=== PATIENT | female | born 1935 | race Caucasian/White ===

== ENCOUNTER 2017-02-20 12:03 | Inpatient (IN) | payer MEDICARE, OTHER ==
[~2017-02-20] VITALS: Ht 157.5 cm; Wt 60.0 kg
[~2017-02-20 12:03] MED LIST: AMLO-145 PO; ATOR40TA21 PO; BENA40TA54 PO; CALC-678 PO; DOCU-144 PO; FAMO-18 PO; GLIM2TAB47 PO; HYDR12.544 PO; METO-448 PO; NEBI5TAB9 PO; PARO-37 PO; WARF3TAB PO
[2017-02-20 13:42] VITALS: BP 192/74; RESP 18
[2017-02-20 14:39] VITALS: PULSE 69
[2017-02-20] MEDS: SOD CHLORIDE 0.9% 1,000 ML IV SCH (15:23)
[2017-02-20] MEDS ORDERED: ONDANSETRON 4 MG INJ IV PRN (15:30)
[2017-02-20] MEDS ORDERED: NACL 0.9% 3 ML SYG IV SCH (15:30)
[2017-02-20] MEDS ORDERED: BISACODYL 10 MG SUPP PR PRN (15:30)
[2017-02-20] MEDS ORDERED: ACETAMINOPHEN 650 MG SUPP PR PRN (15:30)
[2017-02-20] MEDS ORDERED: DOCUSATE SODIUM 100 MG CAP PO PRN (15:30)
[2017-02-20] MEDS ORDERED: MAGNESIUM HYDROXIDE 30ML CUP PO PRN (15:30)
[2017-02-20 15:35] VITALS: BP 164/78; RESP 18
[2017-02-20 16:00] VITALS: PULSE 65
[2017-02-20] MEDS ORDERED: GLUCAGON 1 MG INJ IM PRN (16:00)
[2017-02-20] MEDS ORDERED: GLUCOSE GEL 15 GRAM TUBE BUCCAL PRN (16:00)
[2017-02-20] MEDS ORDERED: GLUCOSE GEL 15 GRAM TUBE PO PRN ×2 (16:00)
[2017-02-20] MEDS ORDERED: DEXTROSE 50% 50 ML SYRINGE IV PRN ×2 (16:00)
[2017-02-20 16:21] LABS: ADD SCAN DIFF NO
[2017-02-20 16:23] LABS: BASOPHILS % 0.2 % (0.0-2.0); EOSINOPHILS # 0.1 10^3/ul (0.0-0.5); EOSINOPHILS % 0.5 % (0.0-7.0); HEMOGLOBIN 14.3 g/dl (12.0-16.0); LYMPHOCYTES # 2.2 10^3/ul (0.8-2.9); LYMPHOCYTES % 20.3 % (15.0-51.0); MEAN CORPUSCULAR HEMOGLOBIN 28.8 pg (29.0-33.0); MEAN CORPUSCULAR HGB CONC 33.3 g/dl (32.0-37.0); MEAN CORPUSCULAR VOLUME 86.5 fl (82.0-101.0); MONOCYTE # 1.2 10^3/ul (0.3-0.9); MONOCYTES % 11.1 % (0.0-11.0); NEUTROPHIL # 7.4 10^3/ul (1.6-7.5); NEUTROPHILS % 67.5 % (39.0-77.0); PLATELET COUNT 232 10^3/UL (140-415); RED BLOOD COUNT 4.97 10^6/ul (4.20-5.40); RED CELL DISTRIBUTION WIDTH 14.4 % (11.5-14.5)
[2017-02-20 16:38] LABS: ALBUMIN 2.9 g/dl (3.3-4.9); CHLORIDE 93 mmol/L (97-110); POTASSIUM 3.9 mmol/L (3.5-5.1); SODIUM 133 mmol/L (135-144)
[2017-02-20 16:40] LABS: BILIRUBIN,INDIRECT 0.7 mg/dl (0-1.1); BILIRUBIN,TOTAL 0.7 mg/dl (0.2-1.3); CREATININE 0.94 mg/dl (0.44-1.00)
[2017-02-20 16:41] LABS: ALANINE AMINOTRANSFERASE 23 IU/L (13-69); ALBUMIN/GLOBULIN RATIO 0.82; ALKALINE PHOSPHATASE 79 IU/L (42-121); ANION GAP 15 (8-16); ASPARTATE AMINO TRANSFERASE 22 IU/L (15-46); BLOOD UREA NITROGEN 19 mg/dl (7-20); CARBON DIOXIDE 29 mmol/L (21-31); CREATINE KINASE 31 IU/L (23-200); GLUCOSE 151 mg/dl (70-220); TOTAL PROTEIN 6.4 g/dl (6.1-8.1)
[2017-02-20 16:49] LABS: CK-MB 0.42 ng/ml (0.0-2.4)
[2017-02-20 16:56] LABS: TROPONIN-I < 0.012 ng/ml (0.00-0.12)
[2017-02-20 17:50] LABS: ADD UMIC YES; URINE BILIRUBIN (Dip) NEGATIVE (NEGATIVE); URINE BLOOD (Dip) 1+ (NEGATIVE); URINE COLOR YELLOW (YELLOW); URINE GLUCOSE (Dip) NEGATIVE (NEGATIVE); URINE KETONES (Dip) NEGATIVE (NEGATIVE); URINE LEUKOCYTE ESTERASE (Dip) NEGATIVE (NEGATIVE); URINE NITRITE (Dip) NEGATIVE (NEGATIVE); URINE TOTAL PROTEIN (Dip) 4+ (NEGATIVE); URINE UROBILINOGEN (Dip) 1.0 E.U./dL (0.1-1.0)
[2017-02-20] MEDS: HYDROCODONE/APAP (5/325) TAB PO PRN (17:54)
[2017-02-20] MEDS: CALCIUM CARBONATE 1.25 GM TAB PO SCH (17:54)
[2017-02-20 18:00] LABS: BACTERIA,URINE MODERATE; MUCUS,URINE FEW
[2017-02-20] MEDS: INSULIN ASPART [NOVOLOG] 3 ML PEN SC SCH ×2 (18:05→21:00)
--- NOTE | 2017-02-20 18:55 | RADRPT ---
PROCEDURE: CT Brain without contrast. CLINICAL INDICATION: Headaches and loss of consciousness TECHNIQUE: A CT of the brain was performed on a [employer] 64-slice CT scanner utilizing axial imaging from the skull base through the vertex without IV contrast. Multiplanar reformatted images were made. Images were reviewed on a PACS workstation. The CTDIvol is 43.68 mGy and the DLP is 720 .23 mGycm. One of the following 3 dose reduction techniques were used: Automated exposure control; adjustment of the mA and/or kV according to patient size; or use of iterative reconstruction technique. COMPARISON: MR brain 08/10/[address] brain 08/09/2012 FINDINGS: There is no intracranial hemorrhage, mass effect, or midline shift. No extra-axial fluid collection is seen. The ventricles and sulci are age appropriate. Mild to moderate diffuse volume loss is pre sent. Confluent decreased attenuation is present in the bilateral subcortical white matter, bilater al centrum semiovale, bilateral periventricular white matter, bilateral insula, right thalamus, all compatible with moderate chronic microvascular ischemic disease and chronic right thalamic and coron a radiata lacunar infarct. Moderate vascular calcifications are present of the intracranial interna l carotid arteries and the vertebral arteries.. The visualized scalp and calvarium are normal. The bilateral orbits demonstrate prior lens replacem ent with senescent calcifications present. The bilateral paranasal sinuses demonstrate mild mucosal thickening in the bilateral ethmoid sinuses. No acute air fluid levels are present. The bilateral mastoid air cells and middle ear cavities are clear. IMPRESSION: 1. No evidence of acute intracranial hemorrhage, infarcts, or acute intracranial pathology. 2. Moderate chronic microvascular ischemic disease and mild to moderate diffuse volume loss 3. Chronic right thalamic lacunar and plascencia radiata infarct 4. Moderate atherosclerotic vascular disease. RPTAT: HDC .Nata Quiroga MD, MD Date Time Electronically viewed and signed by .Nata Quiroga MD, MD on 02/20/2017 18:55 .C/
--- NOTE | 2017-02-20 19:07 | RADRPT ---
PROCEDURE: CT Cervical Spine. CLINICAL INDICATION: Neck pain TECHNIQUE: A CT of the cervical spine was performed on a Joe 64-slice CT scanner utilizing hi gh-resolution axial imaging from the skull base through the cervical thoracic junction. Sagittal, c oronal, and multiplanar reformatted images were made. CTDI 22.11 mGy and DLP 404.59 mGy-cm. One of the following 3 dose reduction techniques were used during this CT examination: automated exp osure control; adjustment of the mA and /or kV according to patient size; or use of iterative recons truciton technique COMPARISON: 08/14/2012 CT cervical spine FINDINGS: There is a normal lordosis of the cervical spine. Acute fractures or traumatic subluxations are note d. Preservation of vertebral body heights are noted. Anterior degenerative spondylosis is present of the C3 through T1 level. Degenerative endplate changes and disk changes are noted at the C3-4 an d C4-5 levels with severe disk space height loss present. The visualized bilateral lung apices and imaged paravertebral soft tissues are normal with the exception of extensive vascular disease noted in the bilateral internal carotid arteries and distal common carotid artery. In addition a peripher ally calcified nodule in the right posterior thyroid lobe measuring 1.2 cm is present. Recommend th yroid ultrasound and correlation with thyroid function tests. The posterior elements are intact and well aligned. The specific axial levels are as follows: Occiput to C2: The visualized posterior fossa bilateral mastoid air cells and skull base are normal . No evidence for significant stenosis is present. Atlantoaxial degenerative changes are present. C2-3: Mild osteophytic bar and bulge is present with bilateral uncovertebral osteophytes. The cent ral canal, subarticular recess and neural foramen are patent. C3-4: Severe degenerative endplate and disk changes with disk space height loss is noted. Mild bro ad-based bulge and osteophyte is present with bilateral uncovertebral and facet osteoarthropathy. A P canal dimension is 9.3 mm. This results in a mild central canal stenosis, without subarticular re cess or left neural foraminal stenosis. Moderate to severe right neural foraminal stenosis is prese nt. C4-5: Severe disk space height loss and degenerative endplate changes are present. An osteophytic bar and bulge is present with left greater than right uncovertebral osteophyte and facet arthropathy . AP canal dimension 7.5 mm. This results in a moderate central canal stenosis, left greater than right subarticular recess stenosis and moderate left and mild right neural foraminal stenosis. C5-6: Mild spondylosis is present with preservation of disk space height. A mild osteophytic bar a nd bulge is present. AP canal dimension is 9.2 mm. This results in a mild central canal stenosis w ithout subarticular recess stenosis. Mild bilateral neural foraminal stenosis is present. C6-7: Mild osteophytic bar and bulge is present. Bilateral uncovertebral osteophytes and facet art hropathy is present. The central canal, bilateral subarticular recesses are patent. Moderate bilat eral neural foraminal stenosis is present. C7-T1: The intervertebral discs is normal. The central canal, subarticular recess and neural collette en are patent. IMPRESSION: 1. No acute fractures or traumatic subluxations. 2. Anterior degenerative spondylosis from C3-T1 with severe degenerative endplate and disk changes at C3-4 and C4-5 as noted. 3. Multilevel broad-based disk osteophyte complexes at the C2-3 through C6-7 levels with moderate c entral canal stenosis at C4-5 and mild at C3-4 and C5-6. 4. Multilevel neural foraminal stenosis at the C3-4 through C6-7 levels. 5. Multilevel facet and uncovertebral osteoarthropathy as noted. RPTAT: HDC .Nata Quiroga MD, MD Date Time Electronically viewed and signed by .Nata Quiroga MD, MD on 02/20/2017 19:07 .C/
--- NOTE | 2017-02-20 19:08 | HP ---
DATE OF ADMISSION: 02/20/2017 CHIEF COMPLAINT: Altered level of consciousness. HISTORY OF PRESENT ILLNESS: This is an 81-year-old female with reported past medical history of CVA 30 years ago, pulmonary embolism 7 years ago, hypertension, diabetes, osteoporosis, dyslipidemia, h istory of breast tumor status post removal on the left side, history of uterine cancer status post h ysterectomy, who came to [facility] due to reports of altered level of consciousne ss. The patient is a poor historian of her medical health and, as such, report was obtained from zahra rizvi's family members who do live with the patient. According to report, roughly on Monday, 2016, patient was noted to have experienced dizziness as well as headaches after she had gone to the bathroom. She also had associated trembling and shaking. She did have reported nausea and vomitin g, nonbilious, nonbloody, with no associated fevers. She denied any diarrhea. She subsequently was brought to [facility] for the aforementioned issues. At that time, she reportedly had a CT scan of her head that showed no evidence of acute CVA or hemorrhage or mass. Additionally, her labs drawn over there did show her to have a white count of 14.4. She did have some slight renal in sufficiency with creatinine of 1.16 and BUN of 18 respectively. At that time, she was diagnosed wit h urinary tract infection, although it was noted that her nitrite test and leukocyte esterase test w as negative at [facility]. She was treated for UTI nevertheless and was dischar ged home with pain medicine as well as antibiotics. At that time, she also had reported head and ne ck pain. Due to her worsening state noticed on 02/20/2017 and reported altered level of consciousne ss, she was brought back to [facility] for evaluation, but transferred to [facility] secondary to insurance issue. On further examination, patient was still noted with wo rsening neck pain even slight to the touch. No motor deficit was seen and patient was slightly aler t, although she did have some kind of garbled speech. No fevers noted. Blood pressure noted to be slightly elevated. The patient is alert to person and place. She denies any chest pain at this [facility]. It was reported that patient also had CT scan of her abdomen, although the report is not in augusto t. Per ER, they did state that she did have findings consistent with diverticulosis without diverti culitis. At present, the patient denies any abdominal pain. She does report having some minimal ch est discomfort, more midsternal, nonradiating. Only minimal shortness of breath associated with it. We will evaluate her for the aforementioned issues. MEDICAL AND SURGICAL History: 1. Cerebrovascular accident reported 30 years ago. 2. Pulmonary embolism 7 years ago, previously on Coumadin. 3. Hypertension. 4. Diabetes. 5. Dyslipidemia. 6. Osteoporosis. 7. History of breast tumor on the left status post removal. 8. History of uterine cancer status post hysterectomy. ALLERGIES: IT IS REPORTED SHE IS ALLERGIC TO CODEINE AND HYDROCODONE AND FENTANYL, BUT WHEN ASKED W HAT REACTIONS WERE, IT WAS ONLY REPORTED THAT SHE HAD NAUSEA AND VOMITING WITH IT AND LIKELY NOT ALL ERGIES, BUT MORE SIDE EFFECT. FAMILY HISTORY: Noncontributory. SOCIAL HISTORY: It was reported the patient is a previous smoker, but no current smoking or alcohol consumption or illicit drug use. PHYSICAL EXAMINATION: VITAL SIGNS: Temperature 97.8, pulse 70, respiratory rate is 18, blood pressure is 192/74, pulse ox imetry 94% on room air. GENERAL: This is an 81-year-old female in mild distress secondary to neck pain, slightly lethargic. EYES: Pupils equal, round, and reactive to light. Anicteric sclerae. NECK: Supple. It is slightly tender on any ambulation. PULMONARY: Clear to auscultation bilaterally. No wheezing or rhonchi. ABDOMEN: Soft, nontender, nondistended. CARDIAC: S1, S2 auscultated. Regular rate. EXTREMITIES: No pitting edema bilateral lower extremities. SKIN: Warm, dry, and intact. NEUROLOGIC: The patient is alert to person and place. It is questionable whether she is coherent t o situation. LABORATORY DATA: Pending at present. IMAGING: [facility] on 02/17/2015 did show her to have CT scan of the brain with no acut e hemorrhage and atrophy and old lacunar infarcts were seen. IMPRESSION AND PLAN: 1. Altered level of consciousness. Etiology unclear at this time. We will follow up further imagi ng of the head. Question whether new event may have occurred considering the patient's mental statu s has reportedly declined from baseline today. Will get neurologist pending clinical course. 2. Neck pain. No report of trauma were done and additionally patient is afebrile. Blood work is p ending, considering possible leukocytosis. Will check imaging of the neck. Consider lumbar spine t ap should patient's condition worsen. 3. Reported chest pain. Follow up with serial troponins. Follow up electrocardiogram. 4. Essential hypertension. We will resume patient's antihypertensive medications and adjust as nee ded. 5. History of diabetes. Follow up on A1c. We will place patient on insulin regimen for now. 6. History of dyslipidemia. Follow up on fasting lipid panel. We will resume patient's statin med ication. 7. History of osteoporosis. Will provide analgesics. 8. History of pulmonary embolism. No active patient noted at this time. We will place patient on prophylaxis for deep vein thromboses. 9. History of uterine cancer status post hysterectomy. No active issue noted at this time. Will m onitor for now. 10. History of cerebrovascular accident. Follow up on imaging of the brain. Continue aspiration p recautions. Will get ST evaluation as well as PT and OT. ADMISSION PROCESS TIME: 40 minutes. Discussed plan of care with Dr. Wolff. Dictated By: SCAR BOSE PROFESSOR OF FOOD BIOCHEMISTRY for LILIYA WOLFF MD RR/NTS Conf#: [id number] DID#: [id number] CC: DES ONEIL MD;*EndCC*
--- NOTE | 2017-02-20 19:38 | RADRPT ---
Echocardiogram Report Patient Name: GALLITO COELLO Gender: Female Date: 1935 Study Date: 20-Feb-2017 Biology Internship: [facility] Location: 5538 Ref. Physician: SCAR BOSE Quality: Adequate Procedures: Transthoracic echocardiogram with complete 2D, M-Mode, and doppler examination. Indications: Chest Pain. 2D/M Mode Doppler Measurement Value Normal Ranges Measurement Value Normal Ranges LVIDd 2D 4.4 3.5 - 5.6 cm AV Peak Pola 1.1 m/sec LVIDs 2D 3.0 2.1 - 4.1 cm AV Peak PG 4.5 mmHg LVPWd 2D 1.1 0.6 - 1.1 cm LVOT Peak Pola 1.0 m/sec IVSd 2D 0.9 0.6 - 1.1 cm LVOT Peak PG 4.1 mmHg AoR Diam 2D 2.8 2.0 - 3.7 cm MV E Peak Pola 0.7 m/sec EDV 2D 85.5 cm3 MV A Peak Pola 1.1 m/sec ESV 2D 26.2 cm3 MV E/A 0.7 MV Decel Time 401 msec MV Decel Piatt 2 MV E/A 0.7 Findings Left Ventricle: Normal left ventricular systolic function. Normal left ventricular cavity size. Normal left ventricular wall thickness. Ejection fraction is visually estimated at 65 %. Tissue Doppler/Mitral Doppler indices are consistent with impaired relaxation (Stage I diastolic dysfunction). Right Ventricle: Normal right ventricular size. Normal right ventricular systolic function. Left Atrium: The left atrium is normal in size. Right Atrium: The right atrium is normal in size. RA Pressure=3. Mitral Valve: Mild mitral leaflet calcification. Mild mitral annular calcification. Trace mitral regurgitation. Aortic Valve: Aortic cusps appear mildly calcified. Trace aortic valve regurgitation. Tricuspid Valve: Tricuspid valve not well visualized. There is trace tricuspid regurgitation. Pulmonic Valve: There is trace pulmonic regurgitation. Pericardium: Normal pericardium with no significant pericardial effusion. Aorta: Normal aortic root. IVC: Normal size and normal respiratory collapse consistent with normal right atrial pressure. Conclusions 1.Normal left ventricular systolic function. Normal left ventricular cavity size. Normal left ventricular wall thickness. Ejection fraction is visually estimated at 65 %. Tissue Doppler/Mitral Doppler indices are consistent with impaired relaxation (Stage I diastolic dysfunction). 2.The left atrium is normal in size. 3.Mild mitral leaflet calcification. Mild mitral annular calcification. Trace mitral regurgitation. 4.Aortic cusps appear mildly calcified. Trace aortic valve regurgitation. 5.Tricuspid valve not well visualized. There is trace tricuspid regurgitation. Electronically Signed By: Vignesh Ward 20-Feb-2017 19:37:50 -0700 Patient Name: GALLITO COELLO Study Date: 20-Feb-2017 [id number]
[2017-02-20 19:54] VITALS: BP 197/85; RESP 19
[2017-02-20 20:02] VITALS: PULSE 63
[2017-02-20] MEDS: HYDROCHLOROTHIAZIDE 12.5 MG CAP PO SCH (21:02)
[2017-02-20] MEDS: ASPIRIN (EC) 81 MG TAB PO SCH (21:02)
[2017-02-20] MEDS: DOCUSATE SODIUM 100 MG CAP PO SCH (21:02)
[2017-02-20] MEDS: HEPARIN 5,000 UNIT/0.5 ML VIAL SC SCH (21:09)
[2017-02-20 21:40] LABS: CREATINE KINASE 28 IU/L (23-200)
[2017-02-20 21:50] LABS: CK-MB 0.44 ng/ml (0.0-2.4)
[2017-02-20 21:56] LABS: TROPONIN-I < 0.012 ng/ml (0.00-0.12)
--- NOTE | 2017-02-20 23:46 | CONS ---
DATE OF ADMISSION: 02/20/2017 DATE OF CONSULTATION: 02/20/2017 TYPE OF CONSULTATION: Emergent interventional cardiology. REASON FOR CONSULTATION: ST elevation on the EKG. CHIEF COMPLAINT: The patient was transferred from [place] for altered level of consciousness. HISTORY OF PRESENT ILLNESS: Thank you for this referral. History was from review of the chart, dis cussion with physician and staff. Unable to provide any history from the patient herself. She is a n extremely poor historian. This is a 81-year-old female with history of CVA many years ago, histor y of PE about 7 years ago, hypertension, diabetes who was admitted to [facility] for altere d level of consciousness. The patient was transferred to our facility for insurance reasons. On monitor was noted to have ST elevation on the EKG and we were kindly asked to evaluate the patient . The patient denies any chest pain or pressure to me. I am unable to obtain any other history. PAST MEDICAL HISTORY: CVA 13 years ago, history of PE, hypertension, diabetes, dyslipidemia, osteop orosis, breast tumor status post removal, history cancer status post hysterectomy. ALLERGIES: REPORTEDLY TO: 1. HYDROCODONE. 2. CODEINE. 3. FENTANYL. MEDICATIONS: As per medication reconciliation. Personally reviewed. SOCIAL HISTORY: The patient apparently was ex-smoker. Does not smoke anymore. FAMILY HISTORY: No reported coronary artery disease. REVIEW OF SYSTEMS: As above mentioned. PHYSICAL EXAMINATION: VITAL SIGNS: Temperature 98.5, heart rate of 65, blood pressure 164/78, respiration rate of 18, sat ting 97%. HEENT: Normocephalic, atraumatic. CARDIOVASCULAR: Regular rate and rhythm. PULMONARY: With no wheezes anteriorly. GASTROINTESTINAL: Soft, obese. EXTREMITIES: With trivial edema. NEUROLOGIC: Awake, oriented to person and place. PSYCHIATRIC: Appears to be calm. LABORATORY DATA: WBC of 11, hemoglobin 14.3, platelets of 232. Sodium 133, potassium 3.9, BUN of 1 9, creatinine 0.94, glucose 151. Troponin less than 0.012. Albumin is 2.9. Brain CT shows no evidence of acute intracranial hemorrhage. EKG was personally reviewed. It shows normal sinus rhythm with right bundle branch block and left a nterior fascicular block. Borderline ____ LVH. There is also first degree AV block. ASSESSMENT AND PLAN: 1. Abnormal electrocardiogram, but no evidence of acute myocardial infarction/ST elevation myocardi al infarction on the electrocardiogram. 2. Hypertension. 3. History of altered level of consciousness. 4. History of cerebrovascular accident. 5. Diabetes. 6. History of pulmonary embolism. 7. History of uterine cancer. 8. Breast cancer. 9. Dyslipidemia. RECOMMENDATIONS: Continue with the blood pressure control and diabetic control. Metoprolol will be changed to b.i.d. dose, though. I will order an echocardiogram as well. Monitor on the telemetry. Antiplatelet agents, aspirin will be initiated given history of stroke. Dictated By: ARI VASQUEZ MD AV/NTS Conf#: [id number] DID#: [id number] CC: DES ONEIL MD; SCAR BOSE NP;*[facility]*
[2017-02-21] VITALS (13 sets, daily range): BP systolic 115–176; BP diastolic 53–79; PULSE 60–85; RESP 15–18
[2017-02-21] MEDS: hydrALAzine 20 MG INJ IV PRN ×2 (01:17→21:40)
[2017-02-21] MEDS: ACCU-CHEK XX SCH (02:00)
[2017-02-21] MEDS ORDERED: PANTOPRAZOLE 40 MG INJ IV SCH (06:00)
[2017-02-21] MEDS: SOD CHLORIDE 0.9% 1,000 ML IV SCH ×2 (06:05→19:08)
[2017-02-21 06:07] LABS: ALBUMIN 2.8 g/dl (3.3-4.9); ALBUMIN/GLOBULIN RATIO 0.9; BILIRUBIN,INDIRECT 0.5 mg/dl (0-1.1); BILIRUBIN,TOTAL 0.5 mg/dl (0.2-1.3); CALCIUM 7.8 mg/dl (8.4-10.2); CHOL/HDL RATIO 3.7 RATIO; CREATININE 1.02 mg/dl (0.44-1.00); MAGNESIUM 1.7 mg/dl (1.7-2.5); PHOSPHORUS 4.7 mg/dl (2.5-4.9); TOTAL PROTEIN 5.9 g/dl (6.1-8.1)
[2017-02-21 06:24] LABS: T3 UPTAKE 44.6 % (23.5-40.5)
[2017-02-21 06:37] LABS: THYROID STIMULATING HORMONE 3.25 MIU/L (0.465-4.680)
[2017-02-21] MEDS: INSULIN ASPART [NOVOLOG] 3 ML PEN SC SCH ×4 (08:26→21:00)
[2017-02-21] MEDS: HEPARIN 5,000 UNIT/0.5 ML VIAL SC SCH ×2 (08:26→21:32)
[2017-02-21] MEDS: CALCIUM CARBONATE 1.25 GM TAB PO SCH (08:27)
[2017-02-21] MEDS: HYDROCHLOROTHIAZIDE 12.5 MG CAP PO SCH ×2 (08:27→21:27)
[2017-02-21] MEDS: DOCUSATE SODIUM 100 MG CAP PO SCH ×2 (08:27→21:25)
[2017-02-21] MEDS: ASPIRIN (EC) 81 MG TAB PO SCH (08:28)
[2017-02-21] MEDS: BENAZEPRIL 40 MG TAB PO SCH (08:28)
[2017-02-21] MEDS: GLIMEPIRIDE 2 MG TAB PO SCH (08:28)
[2017-02-21] MEDS: PAROXETINE 20 MG TAB PO SCH (08:28)
[2017-02-21] MEDS ORDERED: METOPROLOL 25 MG TAB PO SCH (09:00)
[2017-02-21] MEDS ORDERED: NEBIVOLOL 5 MG TAB PO SCH (09:00)
[2017-02-21] MEDS ORDERED: AMLODIPINE 5 MG TAB PO SCH (09:00)
[2017-02-21] MEDS ORDERED: ATORVASTATIN 40 MG TAB PO SCH (09:00)
--- NOTE | 2017-02-21 12:51 | RADRPT ---
PROCEDURE: XR Chest 1 View. CLINICAL INDICATION: Chest pain TECHNIQUE: AP view of the chest was obtained. COMPARISON: August 09, 2012 FINDINGS: The heart size is within normal limits. Calcified atherosclerosis is noted in the aorta. Chronic in terstitial prominence in both lungs is unchanged. No consolidations are identified. No pneumothorax is seen. Minimal subsegmental atelectasis is noted in the bilateral lower lobes. Osseous structures are intact. IMPRESSION: Calcified atherosclerosis in the aorta. Chronic interstitial prominence in both lungs. Subsegmental atelectasis in the bilateral lower lobes. RPTAT: AA .Juan Cobb MD, Date Time Electronically viewed and signed by .Juan Cobb MD, on 02/21/2017 12:51 .P/
--- NOTE | 2017-02-21 14:27 | PN ---
Date/Time of Note Date/Time of Note DATE: 02/21/17 TIME: 14:12 Assessment/Plan VTE Prophylaxis VTE Prophylaxis Intervention: heparin Lines/Catheters IV C[facility] Type ([facility] Peripheral IV Urinary Cath still in place: No Assessment/Plan Assessment/Plan 1. Altered mental status, likely dementia related, no acute illness so far 2. Generalized body ache, PT, decrease lipitor 3. Hypertension. controlled 4. Diabetes. on amaryl 5. Dyslipidemia. on statin 6. History of osteoporosis. Will provide analgesics. 7. History of pulmonary embolism. No active patient noted at this time. We will place patient on prophylaxis for deep vein thromboses. 8. History of uterine cancer status post hysterectomy. No active issue noted at this time. Will monitor for now. 9. h/o CVA, no acute changes on CT scan 10. DVT prophylaxis: heparin Subjective 24 Hr Interval Summary Free Text/Dictation genralized body ache and generalized weakness Exam/Review of Systems Vital Signs Vitals Vital Signs Date Time Temp Pulse Resp B/P Pulse Ox O2 Delivery O2 Flow Rate FiO2 02/21/17 13:20 67 18 115/53 97 Nasal Cannula 2.0 02/21/17 11:51 97.8 Intake and Output 02/20/17 02/20/17 02/21/17 15:00 23:00 07:00 Intake Total 1000 ml Output Total 500 ml Balance 500 ml Exam Constitutional: alert, other (demented) Head: atraumatic, normocephalic Eyes: EOMI, PERRL, nl conjunctiva, nl lids ENMT: nl external ears & nose, nl lips & teeth, nl nasal mucosa & septum Neck: non-tender, supple Respiratory: clear to auscultation, normal air movement, No congested cough, No crackles/rales, No diminished breath sounds, No intercostal retraction, No labored breathing, No other, No respirations, No tactile fremitus, No wheezing Cardiovascular: nl pulses, regular rate and rhythm, No S3, No S4, No bruits, No diastolic murmur, No edema, No gallop, No irregular rhythm, No jugular venous distention (JVD), No murmurs/extra sounds, No other, No rub, No systolic murmur Gastrointestinal: nl liver, spleen, non-tender, soft, No ascites, No bowel sounds, No distended, No firm, No hepatomegaly, No mass , No other, No rebound or guarding, No splenomegaly, No surgical scars, No tender Musculoskeletal: nl extremities to inspection Extremities: normal pulses, No calf tenderness, No clubbing, No cyanosis, No edema, No other, No palpable cord, No pitting pedal edema, No tenderness Neurological: SHEET WRITER II-XII intact, nl speech, other (generalily weak) Results Result Diagram: 02/20/17 1550 02/21/17 0510 Results 24 hrs Laboratory Tests Test 02/20/17 15:50 02/20/17 17:25 02/20/17 18:00 02/20/17 21:05 White Blood Count 11.0 H Red Blood Count 4.97 Hemoglobin 14.3 Hematocrit 43.0 Mean Corpuscular Volume 86.5 Mean Corpuscular Hemoglobin 28.8 L Mean Corpuscular Hemoglobin Concent 33.3 Red Cell Distribution Width 14.4 Platelet Count 232 Mean Platelet Volume 11.0 H Neutrophils % 67.5 Lymphocytes % 20.3 Monocytes % 11.1 H Eosinophils % 0.5 Basophils % 0.2 Nucleated Red Blood Cells % 0.0 Neutrophils # 7.4 Lymphocytes # 2.2 Monocytes # 1.2 H Eosinophils # 0.1 Basophils # 0.0 Nucleated Red Blood Cells # 0.0 Sodium Level 133 L Potassium Level 3.9 Chloride Level 93 L Carbon Dioxide Level 29 Anion Gap 15 Blood Urea Nitrogen 19 Creatinine 0.94 Glucose Level 151 Lactic Acid Level 1.0 Calcium Level 8.0 L Total Bilirubin 0.7 Direct Bilirubin 0.00 Indirect Bilirubin 0.7 Aspartate Amino Transf (AST/SGOT) 22 Alanine Aminotransferase (ALT/SGPT) 23 Alkaline Phosphatase 79 Creatine Kinase 31 Creatine Kinase Index 1.4 Creatinine Kinase MB (Mass) 0.42 Troponin I < 0.012 Total Protein 6.4 Albumin 2.9 L Globulin 3.50 H Albumin/Globulin Ratio 0.82 Lipase 62 Urine Color YELLOW Urine Clarity CLEAR Urine pH 6.5 Urine Specific [place] 1.020 Urine Ketones NEGATIVE Urine Nitrite NEGATIVE Urine Bilirubin NEGATIVE Urine Urobilinogen 1.0 E.U./dL Urine Leukocyte Esterase NEGATIVE Urine Microscopic RBC 5-10 Urine Microscopic WBC 2-5 Urine Epithelial Cells FEW Urine Bacteria MODERATE Urine Granular Casts FEW Urine Mucus FEW Urine Hemoglobin 1+ H Urine Glucose NEGATIVE Urine Total Protein 4+ H Bedside Glucose 118 125 Test 02/20/17 21:20 02/21/17 05:10 02/21/17 07:42 02/21/17 11:50 Creatine Kinase 28 Creatine Kinase Index 1.6 Creatinine Kinase MB (Mass) 0.44 Troponin I < 0.012 Sodium Level 130 L Potassium Level 4.0 Chloride Level 97 Carbon Dioxide Level 28 Anion Gap 9 # Blood Urea Nitrogen 23 H Creatinine 1.02 H Glucose Level 144 Hemoglobin A1c 7.5 H Calcium Level 7.8 L Phosphorus Level 4.7 Magnesium Level 1.7 Total Bilirubin 0.5 Direct Bilirubin 0.00 Indirect Bilirubin 0.5 Aspartate Amino Transf (AST/SGOT) 21 Alanine Aminotransferase (ALT/SGPT) 24 Alkaline Phosphatase 76 Total Protein 5.9 L Albumin 2.8 L Globulin 3.10 Albumin/Globulin Ratio 0.90 Triglycerides Level 126 Cholesterol Level 150 LDL Cholesterol, Calculated 85 HDL Cholesterol 40 Cholesterol/HDL Ratio 3.7 Thyroid Stimulating Hormone (TSH) 3.250 Free Thyroxine Index 3.66 Thyroxine (T4) 8.2 Triiodothyronine (T3) Uptake 44.6 H Bedside Glucose 161 113 Medications Medications Current Medications Amlodipine Besylate (Norvasc) 5 mg DAILY PO Last administered on 02/21/17 08: 28; Admin Dose 5 MG; Start 02/21/17 at 09:00 Atorvastatin Calcium (Lipitor) 40 mg DAILY PO Last administered on 02/21/17 08 :28; Admin Dose 40 MG; Start 02/21/17 at 09:00 Benazepril HCl (Lotensin) 40 mg DAILY PO Last administered on 02/21/17 08:28; Admin Dose 40 MG; Start 02/21/17 at 09:00 Docusate Sodium (Colace) 100 mg BID PO Last administered on 02/21/17 08:27; Admin Dose 100 MG; Start 02/20/17 at 21:00 Glimepiride (Amaryl) 2 mg DAILY@08 PO Last administered on 02/21/17 08:28; Admin Dose 2 MG; Start 02/21/17 at 08:00 Hydrochlorothiazide (Hydrochlorothiazide) 12.5 mg BID PO Last administered on 08:27; Admin Dose 12.5 MG; Start 02/20/17 at 21:00 Metoprolol Tartrate (Lopressor) 25 mg DAILY PO Last administered on 02/21/17 08:27; Admin Dose 25 MG; Start 02/21/17 at 09:00 Paroxetine HCl (Paxil) 20 mg DAILY PO Last administered on 02/21/17 08:28; Admin Dose 20 MG; Start 02/21/17 at 09:00 Calcium Carbonate 1.25 gm 1.25 gm DAILY PO Last administered on 02/21/17 08:27 ; Admin Dose 1.25 GM; Start 02/20/17 at 16:00 Sodium Chloride (NS) 1,000 ml @ 70 mls/hr [id number] IV Last administered on 02/21 06:05; Admin Dose 70 MLS/HR; Start 02/20/17 at 15:23 Ondansetron HCl (Zofran Inj) 4 mg Q6H PRN IV NAUSEA AND/OR VOMITING; Start at 15:30 Acetaminophen (Tylenol Tab) 650 mg Q6H PRN PO PAIN LEVEL 1-3 OR FEVER; Start at 15:30 Acetaminophen (Tylenol Supp) 650 mg Q6H PRN [place] PAIN LEVEL 1-3 OR FEVER; Start 02/20/17 at 15:30 Acetaminophen/ Hydrocodone Bitart ([place] (5/325)) 1 tab Q6H PRN PO MODERATE PAIN LEVEL 4-6 Last administered on 02/20/17 17:54; Admin Dose 1 TAB; Start at 15:30 Acetaminophen/ Hydrocodone Bitart ([place] (5/325)) 2 tab Q6H PRN PO SEVERE PAIN LEVEL 7-10; Start 02/20/17 at 15:30 Morphine Sulfate (morphine) 1 mg Q4H PRN IV SEVERE PAIN LEVEL 7-10; Start 02/20 at 15:30 Docusate Sodium (Colace) 100 mg Q12H PRN PO CONSTIPATION; Start 02/20/17 at 15: 30 Magnesium Hydroxide (Milk Of Mag) 30 ml DAILY PRN PO CONSTIPATION; Start at 15:30 Bisacodyl (Dulcolax Supp) 10 mg DAILY PRN [place] CONSTIPATION; Start 02/20/17 at 15 :30 Heparin Sodium (Porcine) (Heparin (5000 Units/0.5 ml)) 5,000 unit Q12 SC Last administered on 02/21/17 08:26; Admin Dose 5,000 UNIT; Start 02/20/17 at 21:00 Diagnostic Test (Pha) (Accu-Chek) 1 ea 02 XX ; Start 02/21/17 at 02:00 Pantoprazole (Protonix Iv) 40 mg DAILY@06 IV Last administered on 02/21/17 06: 04; Admin Dose 40 MG; Start 02/21/17 at 06:00 Miscellaneous Information 1 ea NOTE XX ; Start 02/20/17 at 16:00 Glucose (Glutose) 15 gm Q15M PRN PO DECREASED GLUCOSE; Start 02/20/17 at 16:00 Glucose (Glutose) 22.5 gm Q15M PRN PO DECREASED GLUCOSE; Start 02/20/17 at 16: 00 Dextrose (D50w Syringe) 25 ml Q15M PRN IV DECREASED GLUCOSE; Start 02/20/17 at 16:00 Dextrose (D50w Syringe) 50 ml Q15M PRN IV DECREASED GLUCOSE; Start 02/20/17 at 16:00 Glucagon (Glucagen) 1 mg Q15M PRN IM DECREASED GLUCOSE; Start 02/20/17 at 16:00 Glucose (Glutose) 15 gm Q15M PRN BUCCAL DECREASED GLUCOSE; Start 02/20/17 at 16 :00 Aspirin (Halfprin) 81 mg DAILY PO Last administered on 02/21/17 08:28; Admin Dose 81 MG; Start 02/20/17 at 19:30 Hydralazine HCl (Apresoline) 10 mg Q4H PRN IV ELEVATED BLOOD PRESSURE Last administered on 02/21/17 01:17; Admin Dose 10 MG; Start 02/20/17 at 23:30 LAMONTE MELGOZA MD Feb 21, 2017 14:24
[2017-02-21] MEDS: ACETAMINOPHEN 325 MG TAB PO PRN (14:53)
[2017-02-21] MEDS: HYDROCODONE/APAP (5/325) TAB PO PRN ×2 (15:56→23:15)
--- NOTE | 2017-02-21 16:49 | PN ---
DATE: 02/21/2017 CARDIOLOGY FOLLOWUP SUBJECTIVE: Discussed with the staff and family. No new cardiac event. Patient remains in sinus r hythm. ____, she has pain. Could not describe where. MEDICATIONS: Reviewed. PHYSICAL EXAMINATION: VITAL SIGNS: Temperature 97.8, blood pressure 115/53, respiration rate of 18, saturating 97%. HEENT: Normocephalic, atraumatic. Elderly female. Pupils are equal. CARDIOVASCULAR: Regular rate and rhythm. Systolic murmur. PULMONARY: Anteriorly with no wheezes. GASTROINTESTINAL: Soft. No rebound. EXTREMITIES: Trivial edema. NEUROLOGIC: Awake, oriented to person and place. PSYCHIATRIC: Appears to be calm but anxious. LABORATORY: Sodium 130, potassium 4, BUN of 23, creatinine 1.02, glucose 144. Albumin is 2.8. TSH 3.25. Chest x-ray shows ____atelectasis, bilateral lobes. Echocardiogram was personally reviewed as well, and shows ejection fraction of 65% with diastolic dysfunction. ASSESSMENT AND PLAN: 1. Abnormal EKG, but not consistent with ST elevation myocardial infarction. 2. Hypertension, under control. 3. Diabetes ____. 4. Altered level of consciousness, History of pulmonary embolus in the past. 3. Dementia. RECOMMENDATIONS: We will continue with the current cardiac care. Medical therapy as per the hospit ali service will be continued. Dictated By: ARI PENA/CATRACHITO Conf#: [id number] DID#: [id number]
[2017-02-22] VITALS (12 sets, daily range): BP systolic 152–214; BP diastolic 63–92; PULSE 71–101; RESP 16–20
[2017-02-22] MEDS: ACCU-CHEK XX SCH (02:09)
[2017-02-22] MEDS: PANTOPRAZOLE (EC) 40 MG TAB PO SCH (05:23)
[2017-02-22] MEDS: hydrALAzine 20 MG INJ IV PRN (05:52)
[2017-02-22] MEDS: INSULIN ASPART [NOVOLOG] 3 ML PEN SC SCH ×4 (08:00→20:58)
--- NOTE | 2017-02-22 09:02 | RADRPT ---
Vent Rate: 65 bpm RR Interval: 0 msec ID Interval: 218 msec QRS Duration: 136 msec QT Interval: 474 msec QTC Interval: 492 msec P-R-T [place]: -13 - -72 - 11 degrees Sinus rhythm with 1st degree AV block Right bundle branch block Left anterior fascicular block Bifascicular block Minimal voltage criteria for LVH, may be normal variant Possible Lateral infarct , age undetermined Abnormal ECG Electronically Signed By: Mamadou More [id number]
--- NOTE | 2017-02-22 09:03 | RADRPT ---
Vent Rate: 86 bpm RR Interval: 0 msec SD Interval: 240 msec QRS Duration: 122 msec QT Interval: 410 msec QTC Interval: 490 msec P-R-T [place]: 71 - -74 - 57 degrees Sinus rhythm with 1st degree AV block Left axis deviation Right bundle branch block Minimal voltage criteria for LVH, may be normal variant Inferior infarct , age undetermined Abnormal ECG Electronically Signed By: Mamadou More [id number]
[2017-02-22] MEDS: GLIMEPIRIDE 2 MG TAB PO SCH (10:01)
[2017-02-22] MEDS: ATORVASTATIN 20 MG TAB PO SCH (10:01)
[2017-02-22] MEDS: CALCIUM CARBONATE 1.25 GM TAB PO SCH (10:01)
[2017-02-22] MEDS: PAROXETINE 20 MG TAB PO SCH (10:01)
[2017-02-22] MEDS: BENAZEPRIL 40 MG TAB PO SCH (10:01)
[2017-02-22] MEDS: DOCUSATE SODIUM 100 MG CAP PO SCH ×2 (10:02→20:18)
[2017-02-22] MEDS: ASPIRIN (EC) 81 MG TAB PO SCH (10:02)
[2017-02-22] MEDS: HYDROCHLOROTHIAZIDE 12.5 MG CAP PO SCH ×2 (10:02→20:18)
[2017-02-22] MEDS: HEPARIN 5,000 UNIT/0.5 ML VIAL SC SCH ×2 (10:05→20:25)
[2017-02-22] MEDS: SOD CHLORIDE 0.9% 1,000 ML IV SCH (10:12)
--- NOTE | 2017-02-22 10:19 | PN ---
DATE: 02/22/2017 CARDIOLOGY FOLLOWUP SUBJECTIVE: No new cardiac event. No chest pain or pressure. The patient is still confused. MEDICATIONS: Reviewed as per medication reconciliation, was personally reviewed. PHYSICAL EXAMINATION: VITAL SIGNS: Temperature 98.1, heart rate of 93, blood pressure 180/77, respiration rate of 16, sat urating 97%. HEENT: Normocephalic, atraumatic. Pupils are equal. CARDIOVASCULAR: Regular rate and rhythm. PULMONARY: With no wheezes. GASTROINTESTINAL: Soft, nontender. EXTREMITIES: With trivial edema. NEUROLOGIC: Awake. PSYCHIATRIC: Appeared to be calm. LABORATORY: Shows glucose 119. ASSESSMENT AND PLAN: 1. Abnormal EKG with no evidence of acute myocardial infarction. 2. Hypertension. 3. Diabetes. 4. Encephalopathy consciousness. 5. History of pulmonary embolism in the past. 5. Dementia. RECOMMENDATIONS: I will change the metoprolol to carvedilol for control of the blood pressure daren tiwari. Continue the rest of her cardiac care. Neuro workup as per internal medicine. Dictated By: ARI PENA/CATRACHITO Conf#: [id number] DID#: [id number]
--- NOTE | 2017-02-22 13:12 | PN ---
Date/Time of Note Date/Time of Note DATE: 02/22/17 TIME: 13:10 Assessment/Plan VTE Prophylaxis VTE Prophylaxis Intervention: heparin Lines/Catheters IV Catheter Type (from Nrs): Peripheral IV Urinary Cath still in place: Yes Reason Cath still needed: other (indicate) Assessment/Plan Assessment/Plan 1. Altered mental status, likely dementia related, PT, consider SNF 2. Generalized body ache, PT, decrease lipitor 3. Hypertension. controlled 4. Diabetes. on amaryl 5. Dyslipidemia. on statin 6. History of osteoporosis. Will provide analgesics. 7. History of pulmonary embolism. No active patient noted at this time. We will place patient on prophylaxis for deep vein thromboses. 8. History of uterine cancer status post hysterectomy. No active issue noted at this time. Will monitor for now. 9. h/o CVA, no acute changes on CT scan 10. DVT prophylaxis: heparin Subjective 24 Hr Interval Summary Free Text/Dictation alert, demented, no acute distress Exam/Review of Systems Vital Signs Vitals Vital Signs Date Time Temp Pulse Resp B/P Pulse Ox O2 Delivery O2 Flow Rate FiO2 02/22/17 12:00 99 02/22/17 11:49 98.1 18 194/79 95 02/21/17 21:25 Nasal Cannula 2.0 Intake and Output 02/21/17 02/21/17 02/22/17 15:00 23:00 07:00 Intake Total 1100 ml 1420 ml Output Total 1600 ml 2300 ml Balance -500 ml -880 ml Exam Constitutional: alert, well developed Head: atraumatic, normocephalic Eyes: EOMI, PERRL, nl conjunctiva, nl lids ENMT: mucosa pink and moist, nl external ears & nose, nl lips & teeth, nl nasal mucosa & septum Neck: non-tender, supple Respiratory: clear to auscultation, normal air movement, No congested cough, No crackles/rales, No diminished breath sounds, No intercostal retraction, No labored breathing, No other, No respirations, No tactile fremitus, No wheezing Cardiovascular: nl pulses, regular rate and rhythm, No S3, No S4, No bruits, No diastolic murmur, No edema, No gallop, No irregular rhythm, No jugular venous distention (JVD), No murmurs/extra sounds, No other, No rub, No systolic murmur Gastrointestinal: nl liver, spleen, non-tender, soft, No ascites, No bowel sounds, No distended, No firm, No hepatomegaly, No mass , No other, No rebound or guarding, No splenomegaly, No surgical scars, No tender Musculoskeletal: nl extremities to inspection Extremities: normal pulses, No calf tenderness, No clubbing, No cyanosis, No edema, No other, No palpable cord, No pitting pedal edema, No tenderness Neurological: SLUBBER HAND II-XII intact, nl mental status, nl speech, nl strength, No DTR's symmetric, No confused, No focal weakness, No lethargic, No numbness , No other, No reflexes, No unresponsive Skin: nl turgor Lymph: nl lymph nodes Results Result Diagram: 02/20/17 1550 02/21/17 0510 Results 24 hrs Laboratory Tests Test 02/21/17 16:58 02/21/17 16:59 02/21/17 17:15 02/21/17 21:30 Bedside Glucose 63 L 60 L 95 170 Test 02/22/17 02:04 02/22/17 07:51 02/22/17 11:51 Bedside Glucose 71 119 201 Medications Medications Current Medications Benazepril HCl (Lotensin) 40 mg DAILY PO Last administered on 02/22/17 10:01; Admin Dose 40 MG; Start 02/21/17 at 09:00 Docusate Sodium (Colace) 100 mg BID PO Last administered on 02/22/17 10:02; Admin Dose 100 MG; Start 02/20/17 at 21:00 Glimepiride (Amaryl) 2 mg DAILY@08 PO Last administered on 02/22/17 10:01; Admin Dose 2 MG; Start 02/21/17 at 08:00 Hydrochlorothiazide (Hydrochlorothiazide) 12.5 mg BID PO Last administered on 10:02; Admin Dose 12.5 MG; Start 02/20/17 at 21:00 Paroxetine HCl (Paxil) 20 mg DAILY PO Last administered on 02/22/17 10:01; Admin Dose 20 MG; Start 02/21/17 at 09:00 Calcium Carbonate 1.25 gm 1.25 gm DAILY PO Last administered on 02/22/17 10:01 ; Admin Dose 1.25 GM; Start 02/20/17 at 16:00 Sodium Chloride (NS) 1,000 ml @ 70 mls/hr [id number] IV Last administered on 02/22 10:12; Admin Dose 70 MLS/HR; Start 02/20/17 at 15:23 Ondansetron HCl (Zofran Inj) 4 mg Q6H PRN IV NAUSEA AND/OR VOMITING; Start at 15:30 Acetaminophen (Tylenol Tab) 650 mg Q6H PRN PO PAIN LEVEL 1-3 OR FEVER Last administered on 02/21/17 14:53; Admin Dose 650 MG; Start 02/20/17 at 15:30 Acetaminophen (Tylenol Supp) 650 mg Q6H PRN [place] PAIN LEVEL 1-3 OR FEVER; Start 02/20/17 at 15:30 Acetaminophen/ Hydrocodone Bitart ([place] (5/325)) 1 tab Q6H PRN PO MODERATE PAIN LEVEL 4-6 Last administered on 02/21/17 23:15; Admin Dose 1 TAB; Start at 15:30 Acetaminophen/ Hydrocodone Bitart ([place] (5/325)) 2 tab Q6H PRN PO SEVERE PAIN LEVEL 7-10; Start 02/20/17 at 15:30 Morphine Sulfate (morphine) 1 mg Q4H PRN IV SEVERE PAIN LEVEL 7-10; Start 02/20 at 15:30 Docusate Sodium (Colace) 100 mg Q12H PRN PO CONSTIPATION; Start 02/20/17 at 15: 30 Magnesium Hydroxide (Milk Of Mag) 30 ml DAILY PRN PO CONSTIPATION; Start at 15:30 Bisacodyl (Dulcolax Supp) 10 mg DAILY PRN [place] CONSTIPATION; Start 02/20/17 at 15 :30 Heparin Sodium (Porcine) (Heparin (5000 Units/0.5 ml)) 5,000 unit Q12 SC Last administered on 02/22/17 10:05; Admin Dose 5,000 UNIT; Start 02/20/17 at 21:00 Diagnostic Test (Pha) (Accu-Chek) 1 ea 02 XX Last administered on 02/22/17 02: 09; Admin Dose 1 EA; Start 02/21/17 at 02:00 Miscellaneous Information 1 ea NOTE XX ; Start 02/20/17 at 16:00 Glucose (Glutose) 15 gm Q15M PRN PO DECREASED GLUCOSE; Start 02/20/17 at 16:00 Glucose (Glutose) 22.5 gm Q15M PRN PO DECREASED GLUCOSE; Start 02/20/17 at 16: 00 Dextrose (D50w Syringe) 25 ml Q15M PRN IV DECREASED GLUCOSE; Start 02/20/17 at 16:00 Dextrose (D50w Syringe) 50 ml Q15M PRN IV DECREASED GLUCOSE; Start 02/20/17 at 16:00 Glucagon (Glucagen) 1 mg Q15M PRN IM DECREASED GLUCOSE; Start 02/20/17 at 16:00 Glucose (Glutose) 15 gm Q15M PRN BUCCAL DECREASED GLUCOSE; Start 02/20/17 at 16 :00 Aspirin (Halfprin) 81 mg DAILY PO Last administered on 02/22/17 10:02; Admin Dose 81 MG; Start 02/20/17 at 19:30 Hydralazine HCl (Apresoline) 10 mg Q4H PRN IV ELEVATED BLOOD PRESSURE Last administered on 02/22/17 05:52; Admin Dose 10 MG; Start 02/20/17 at 23:30 Atorvastatin Calcium (Lipitor) 20 mg DAILY PO Last administered on 02/22/17 10 :01; Admin Dose 20 MG; Start 02/22/17 at 09:00 Pantoprazole (Protonix Tab) 40 mg DAILY@06 PO Last administered on 02/22/17 05 :23; Admin Dose 40 MG; Start 02/22/17 at 06:00 Amlodipine Besylate (Norvasc) 5 mg BID PO ; Start 02/22/17 at 21:00 Carvedilol (Coreg) 3.125 mg BID PO Last administered on 02/22/17 10:05; Admin Dose 3.125 MG; Start 02/22/17 at 10:00 LAMONTE MELGOZA MD Feb 22, 2017 13:12
[2017-02-22] MEDS: ACETAMINOPHEN 325 MG TAB PO PRN (18:54)
[2017-02-22] MEDS: AMLODIPINE 5 MG TAB PO SCH (20:19)
[2017-02-23] VITALS (13 sets, daily range): BP systolic 145–212; BP diastolic 67–83; PULSE 71–100; RESP 18–20
[2017-02-23] MEDS: ACCU-CHEK XX SCH (02:00)
[2017-02-23] MEDS: ACETAMINOPHEN 325 MG TAB PO PRN ×2 (02:51→12:13)
[2017-02-23] MEDS: hydrALAzine 20 MG INJ IV PRN ×3 (02:51→15:32)
[2017-02-23] MEDS: PANTOPRAZOLE (EC) 40 MG TAB PO SCH (05:18)
[2017-02-23] MEDS: SOD CHLORIDE 0.9% 1,000 ML IV SCH ×2 (05:19→13:52)
[2017-02-23] MEDS: AMLODIPINE 5 MG TAB PO SCH (05:30)
[2017-02-23] MEDS: INSULIN ASPART [NOVOLOG] 3 ML PEN SC SCH ×4 (08:00→21:00)
[2017-02-23] MEDS: ATORVASTATIN 20 MG TAB PO SCH (08:48)
[2017-02-23] MEDS: BENAZEPRIL 40 MG TAB PO SCH (08:48)
[2017-02-23] MEDS: GLIMEPIRIDE 2 MG TAB PO SCH (08:49)
[2017-02-23] MEDS: CALCIUM CARBONATE 1.25 GM TAB PO SCH (08:49)
[2017-02-23] MEDS: DOCUSATE SODIUM 100 MG CAP PO SCH ×2 (08:49→21:30)
[2017-02-23] MEDS: ASPIRIN (EC) 81 MG TAB PO SCH (08:49)
[2017-02-23] MEDS: PAROXETINE 20 MG TAB PO SCH (08:49)
[2017-02-23] MEDS: HYDROCHLOROTHIAZIDE 12.5 MG CAP PO SCH ×2 (08:49→21:32)
[2017-02-23] MEDS: HEPARIN 5,000 UNIT/0.5 ML VIAL SC SCH ×2 (08:53→21:33)
[2017-02-23] MEDS ORDERED: HYDR-3498 PO (14:53)
[2017-02-23] MEDS ORDERED: ATOR20TA65 PO (14:53)
[2017-02-23] MEDS ORDERED: ASPI-664 PO (14:53)
[2017-02-23] MEDS ORDERED: CARV3.1260 PO (14:53)
[2017-02-23] MEDS ORDERED: ACET325T40 PO (14:53)
--- NOTE | 2017-02-23 15:01 | DS ---
Date/Time of Note Date/Time of Note DATE: 02/23/17 TIME: 14:54 Discharge Summary Admission/Discharge Info Admit Date/Time Feb 20, 2017 at 13:04 Discharge Date/Time Final Diagnosis 1. Altered mental status, likely dementia related, PT, consider SNF 2. Generalized body ache, mainly upper back pain, better, PT, decrease lipitor 3. Hypertension. continue antihypertensives 4. Diabetes. on amaryl 5. Dyslipidemia. on statin 6. History of osteoporosis. Will provide analgesics. 7. History of pulmonary embolism. No active patient noted at this time. We will place patient on prophylaxis for deep vein thromboses. 8. History of uterine cancer status post hysterectomy. No active issue noted at this time. Will monitor for now. 9. h/o CVA, no acute changes on CT scan Patient Condition: Stable Hospital Course This is an 81-year-old female with reported past medical history of CVA 30 years ago, pulmonary embolism 7 years ago, hypertension, diabetes, osteoporosis , dyslipidemia, history of breast tumor status post removal on the left side, history of uterine cancer status post hysterectomy, who came to [facility] due to reports of altered level of consciousness. The patient is a poor historian of her medical health and, as such, report was obtained from patient's family members who do live with the patient. According to report, roughly on 02/17/2017, patient was noted to have experienced dizziness as well as headaches after she had gone to the bathroom. She also had associated trembling and shaking. She did have reported nausea and vomiting , nonbilious, nonbloody, with no associated fevers. She denied any diarrhea. She subsequently was brought to [facility] for the aforementioned issues. At that time, she reportedly had a CT scan of her head that showed no evidence of acute CVA or hemorrhage or mass. Additionally, her labs drawn over there did show her to have a white count of 14.4. She did have some slight renal insufficiency with creatinine of 1.16 and BUN of 18 respectively. At that time, she was diagnosed with urinary tract infection, although it was noted that her nitrite test and leukocyte esterase test was negative at [facility]. She was treated for UTI nevertheless and was discharged home with pain medicine as well as antibiotics. At that time, she also had reported head and neck pain. Due to her worsening state noticed on and reported altered level of consciousness, she was brought back to [facility] for evaluation, but transferred to [facility] secondary to insurance issue. On further examination, patient was still noted with worsening neck pain even slight to the touch. No motor deficit was seen and patient was slightly alert, although she did have some kind of garbled speech. No fevers noted. Blood pressure noted to be slightly elevated. The patient is alert to person and place. She denies any chest pain at this time. It was reported that patient also had CT scan of her abdomen, although the report is not in chart. Per ER, they did state that she did have findings consistent with diverticulosis without diverticulitis. At present, the patient denies any abdominal pain. She does report having some minimal chest discomfort, more midsternal, nonradiating. Only minimal shortness of breath associated with it. We will evaluate her for the aforementioned issues. Patient's mental status improved without specific treatment. CT scan no acute changes. It is probably dementia related. Patient has generalized body pain, especially on back of neck and upper back. CT of cervical spine unremarkable except degenerative changes. Lipitor dosage is decreased even CPK is normal. Body pain is improved, only mild upper back pain. will continue norco prn and physical therapy. Home Meds Active Scripts Hydrocodone Bit-Acetaminophen (Hydrocodone Bit-APAP) 5-325MG Tablet, 1 TAB PO Q6H Y for MODERATE PAIN LEVEL 4-6 for 30 Days, TAB Prov:LAMONTE MELGOZA MD 02/23/17 Acetaminophen (MAPAP) 325 Mg Tablet, 650 MG PO Q6H Y for PAIN LEVEL 1-3 OR FEVER for 30 Days, TAB Prov:LAMONTE MELGOZA MD 02/23/17 Aspirin* (Aspirin* EC) 81 Mg Tablet.dr, 81 MG PO DAILY for 30 Days Prov:LAMONTE MELGOZA MD 02/23/17 Carvedilol* (Carvedilol*) 3.125 Mg Tablet, 3.125 MG PO BID for 30 Days, TAB Prov:LAMONTE MELGOZA MD 02/23/17 Atorvastatin Calcium (Atorvastatin Calcium) 20 Mg Tablet, 20 MG PO DAILY for 30 Days, TAB Prov:LAMONTE MELGOZA MD 4/20/17 Reported Medications Famotidine* (Pepcid*) 20 Mg Tablet, 20 MG PO DAILY 04/20/12 Benazepril Hcl* (Lotensin*) 40 Mg Tablet, 40 MG PO DAILY 04/20/12 Hydrochlorothiazide* (Microzide*) 12.5 Mg Capsule, 12.5 MG PO BID 04/20/12 Docusate Sodium* (Colace*) 100 Mg Capsule, 100 MG PO BID 04/20/12 Paroxetine Hcl* (Paroxetine*) 20 Mg Tablet, 20 MG PO DAILY 04/20/12 Glimepiride* (Amaryl*) 2 Mg Tablet, 2 MG PO DAILY 04/20/12 Calcium (Calcium [place]) 500 Mg Tablet, 500 MG PO DAILY 04/20/12 Warfarin Sodium* (Coumadin*) 3 Mg Tablet, 1 MG PO DAILY, 0 Refills 04/20/12 Amlodipine Besylate* (Amlodipine Besylate*) 5 Mg Tablet, 5 MG PO DAILY 04/20/12 Discontinued Reported Medications Nebivolol* (Bystolic*) 5 Mg Tab, 5 MG PO DAILY 08/09/12 Metoprolol Tartrate* (Lopressor*) 25 Mg Tab, 25 MG PO DAILY 04/20/12 Atorvastatin (Lipitor) 40 Mg Tablet, 40 MG PO DAILY 04/20/12 Follow-up Plan SNF for physical therapy PCP in one week Pending Labs Laboratory Tests Test 02/22/17 16:59 02/22/17 20:57 02/23/17 12:02 Bedside Glucose 122mg/dL (70-220) 114mg/dL (70-220) 144mg/dL (70-220) LAMONTE MELGOZA MD Feb 23, 2017 15:01
[2017-02-23] MEDS: NIFEdipine (XL) 60 MG TAB PO SCH (17:21)
[2017-02-23] MEDS ORDERED: AMLODIPINE 5 MG TAB PO SCH (21:00)
[2017-02-24] VITALS (11 sets, daily range): BP systolic 118–155; BP diastolic 61–67; PULSE 86–98; RESP 15–20; Ht 157.5 cm; Wt 60.0 kg
[2017-02-24] MEDS: ACCU-CHEK XX SCH (02:00)
[2017-02-24] MEDS: PANTOPRAZOLE (EC) 40 MG TAB PO SCH (06:08)
--- NOTE | 2017-02-24 07:16 | PN ---
DATE: 02/23/2017 SUBJECTIVE: Discussed with the staph. Rhythm strip was reviewed. The patient remains in sinus rhyth m. No chest pain or pressure. Said he is feeling okay. MEDICATIONS: Reviewed. PHYSICAL EXAMINATION: VITAL SIGNS: Temperature 98.6, heart rate of 84, blood pressure 160/78, has been as high as over 20 0 last night. Respiratory rate of 18. Saturating 96%. HEENT: Normocephalic, atraumatic. Pupils equal and round. CARDIOVASCULAR: Regular rate and rhythm. PULMONARY: With no wheezes. GASTROINTESTINAL: Soft, nontender. EXTREMITIES: Trivial edema. NEUROLOGIC: Awake, responds appropriately. ASSESSMENT AND PLAN: 1. Abnormal EKG with no clinical presentation of acute myocardial infarction. 2. Hypertension. 3. Encephalopathy. 4. Diabetes. 5. History of PE. 6. Dementia. RECOMMENDATIONS: We will continue with the current cardiac care. Will check labs for tomorrow. An tibiotic as per internal medicine as needed. Dictated By: ARI PENA/CATRACHITO Conf#: [id number] DID#: [id number]
[2017-02-24 07:51] LABS: ADD SCAN DIFF NO
[2017-02-24 07:54] LABS: BASOPHIL # 0.1 10^3/ul (0.0-0.1); BASOPHILS % 0.6 % (0.0-2.0); EOSINOPHILS # 0.2 10^3/ul (0.0-0.5); EOSINOPHILS % 2.4 % (0.0-7.0); HEMATOCRIT 42.9 % (37.0-47.0); HEMOGLOBIN 14.3 g/dl (12.0-16.0); LYMPHOCYTES # 2.1 10^3/ul (0.8-2.9); LYMPHOCYTES % 23.6 % (15.0-51.0); MEAN CORPUSCULAR HEMOGLOBIN 28.6 pg (29.0-33.0); MEAN CORPUSCULAR HGB CONC 33.3 g/dl (32.0-37.0); MEAN CORPUSCULAR VOLUME 85.8 fl (82.0-101.0); MEAN PLATELET VOLUME 10.8 fl (7.4-10.4); MONOCYTE # 0.7 10^3/ul (0.3-0.9); MONOCYTES % 8.3 % (0.0-11.0); NEUTROPHIL # 5.7 10^3/ul (1.6-7.5); NEUTROPHILS % 64.9 % (39.0-77.0); PLATELET COUNT 266 10^3/UL (140-415); RED CELL DISTRIBUTION WIDTH 14.6 % (11.5-14.5); WHITE BLOOD COUNT 8.8 10^3/ul (4.8-10.8)
[2017-02-24] MEDS: INSULIN ASPART [NOVOLOG] 3 ML PEN SC SCH ×4 (08:00→21:00)
[2017-02-24 08:10] LABS: ALBUMIN 2.9 g/dl (3.3-4.9)
[2017-02-24 08:11] LABS: POTASSIUM 3.4 mmol/L (3.5-5.1)
[2017-02-24 08:13] LABS: ALBUMIN/GLOBULIN RATIO 0.87; BILIRUBIN,INDIRECT 0.4 mg/dl (0-1.1); BILIRUBIN,TOTAL 0.4 mg/dl (0.2-1.3); CREATININE 0.92 mg/dl (0.44-1.00); TOTAL PROTEIN 6.2 g/dl (6.1-8.1)
[2017-02-24 08:14] LABS: CALCIUM 8.3 mg/dl (8.4-10.2)
[2017-02-24] MEDS: DOCUSATE SODIUM 100 MG CAP PO SCH ×2 (08:39→21:54)
[2017-02-24] MEDS: ATORVASTATIN 20 MG TAB PO SCH (08:39)
[2017-02-24] MEDS: SOD CHLORIDE 0.9% 1,000 ML IV SCH ×2 (08:39→22:11)
[2017-02-24] MEDS: CALCIUM CARBONATE 1.25 GM TAB PO SCH (08:39)
[2017-02-24] MEDS: PAROXETINE 20 MG TAB PO SCH (08:40)
[2017-02-24] MEDS: GLIMEPIRIDE 2 MG TAB PO SCH (08:40)
[2017-02-24] MEDS: ASPIRIN (EC) 81 MG TAB PO SCH (08:40)
[2017-02-24] MEDS: NIFEdipine (XL) 60 MG TAB PO SCH (08:41)
[2017-02-24] MEDS: BENAZEPRIL 40 MG TAB PO SCH (08:41)
[2017-02-24] MEDS: HYDROCHLOROTHIAZIDE 12.5 MG CAP PO SCH ×2 (08:41→21:54)
[2017-02-24] MEDS: HEPARIN 5,000 UNIT/0.5 ML VIAL SC SCH ×2 (08:42→21:57)
--- NOTE | 2017-02-24 15:42 | PN ---
DATE: 02/24/2017 CARDIOLOGY FOLLOWUP SUBJECTIVE: Discussed with the staff. Rhythm strip was reviewed. The patient remains in sinus rhy thm. No chest pain or pressure. MEDICATIONS: Reviewed. PHYSICAL EXAMINATION: VITAL SIGNS: Temperature 98.2, heart rate of 61, blood pressure 141/65, respirations 18. HEENT: Normocephalic, atraumatic. Pupils are equal. CARDIOVASCULAR: Regular rate and rhythm. PULMONARY: With no wheezes. GASTROINTESTINAL: Soft. No rebound or guarding. EXTREMITIES: Trivial edema. NEUROLOGIC: Awake, responds appropriately. LABORATORY DATA: WBC of 8.8, hemoglobin 14.2, platelets 266. Sodium 132, potassium 3.4, BUN of 19, creatinine 0.92, glucose of 129. ASSESSMENT AND PLAN: 1. Abnormal EKG with no evidence of acute myocardial infarction. 2. Hypertension. 3. Diabetes. 4. History of pulmonary embolism. 5. History of dementia. 6. Encephalopathy. 7. Hypokalemia. RECOMMENDATIONS: Electrolytes to be corrected. We will continue with the current cardiac care. Bl ood pressure currently still. Will follow up p.r.n. No further cardiac recommendations at th is point. Dictated By: ARI PENA/CATRACHITO Conf#: [id number] DID#: [id number]
[2017-02-24] MEDS ORDERED: POTASSIUM CHLORIDE (SR) 20 MEQ TAB PO STA (15:47)
--- NOTE | 2017-02-24 15:48 | PN ---
Date/Time of Note Date/Time of Note DATE: 02/24/17 TIME: 15:43 Assessment/Plan VTE Prophylaxis VTE Prophylaxis Intervention: heparin Lines/Catheters IV [facility]ter Type (from [facility]): Peripheral IV Urinary Cath still in place: No Assessment/Plan Chief Complaint/Hosp Course This is an 81-year-old female with reported past medical history of CVA 30 years ago, pulmonary embolism 7 years ago, hypertension, diabetes, osteoporosis , dyslipidemia, history of breast tumor status post removal on the left side, history of uterine cancer status post hysterectomy, who came to [facility] due to reports of altered level of consciousness. The patient is a poor historian of her medical health and, as such, report was obtained from patient's family members who do live with the patient. According to report, roughly on 02/17/2017, patient was noted to have experienced dizziness as well as headaches after she had gone to the bathroom. She also had associated trembling and shaking. She did have reported nausea and vomiting , nonbilious, nonbloody, with no associated fevers. She denied any diarrhea. She subsequently was brought to [facility] for the aforementioned issues. At that time, she reportedly had a CT scan of her head that showed no evidence of acute CVA or hemorrhage or mass. Additionally, her labs drawn over there did show her to have a white count of 14.4. She did have some slight renal insufficiency with creatinine of 1.16 and BUN of 18 respectively. At that time, she was diagnosed with urinary tract infection, although it was noted that her nitrite test and leukocyte esterase test was negative at [facility]. She was treated for UTI nevertheless and was discharged home with pain medicine as well as antibiotics. At that time, she also had reported head and neck pain. Due to her worsening state noticed on and reported altered level of consciousness, she was brought back to [facility] for evaluation, but transferred to [facility] secondary to insurance issue. On further examination, patient was still noted with worsening neck pain even slight to the touch. No motor deficit was seen and patient was slightly alert, although she did have some kind of garbled speech. No fevers noted. Blood pressure noted to be slightly elevated. The patient is alert to person and place. She denies any chest pain at this time. It was reported that patient also had CT scan of her abdomen, although the report is not in chart. Per ER, they did state that she did have findings consistent with diverticulosis without diverticulitis. At present, the patient denies any abdominal pain. She does report having some minimal chest discomfort, more midsternal, nonradiating. Only minimal shortness of breath associated with it. We will evaluate her for the aforementioned issues. Patient's mental status improved without specific treatment. CT scan no acute changes. It is probably dementia related. Patient has generalized body pain, especially on back of neck and upper back. CT of cervical spine unremarkable except degenerative changes. Lipitor dosage is decreased even CPK is normal. Body pain is improved, only mild upper back pain. will continue norco prn and physical therapy. Problems: Assessment/Plan 111. Altered mental status, likely dementia related 2. Generalized body ache, mainly upper back pain, better, PT, decrease lipitor 3. Hypertension. continue antihypertensives 4. Diabetes. on amaryl 5. Dyslipidemia. on statin 6. History of osteoporosis. Will provide analgesics. 7. History of pulmonary embolism. No active patient noted at this time. We will place patient on prophylaxis for deep vein thromboses. 8. History of uterine cancer status post hysterectomy. No active issue noted at this time. Will monitor for now. 9. h/o CVA, no acute changes on CT sca10. Awaiting for SNF placement Subjective 24 Hr Interval Summary Free Text/Dictation No pain. no distress Exam/Review of Systems Vital Signs Vitals Vital Signs Date Time Temp Pulse Resp B/P Pulse Ox O2 Delivery O2 Flow Rate FiO2 02/24/17 15:38 98.1 92 18 142/64 99 02/24/17 08:00 Nasal Cannula 2.0 Intake and Output 02/23/17 02/23/17 02/24/17 15:00 23:00 07:00 Intake Total 1340 ml 100 ml Output Total 1200 ml 750 ml Balance 140 ml -650 ml Exam Constitutional: alert, oriented, well developed Psych: nl mood/affect, no complaints Head: atraumatic, normocephalic Eyes: EOMI, PERRL, nl conjunctiva, nl lids ENMT: nl external ears & nose, nl lips & teeth, nl nasal mucosa & septum Neck: non-tender, supple Respiratory: clear to auscultation, normal air movement, No congested cough, No crackles/rales, No diminished breath sounds, No intercostal retraction, No labored breathing, No other, No respirations, No tactile fremitus, No wheezing Cardiovascular: nl pulses, regular rate and rhythm, No S3, No S4, No bruits, No diastolic murmur, No edema, No gallop, No irregular rhythm, No jugular venous distention (JVD), No murmurs/extra sounds, No other, No rub, No systolic murmur Gastrointestinal: nl liver, spleen, non-tender, soft, No ascites, No bowel sounds, No distended, No firm, No hepatomegaly, No mass , No other, No rebound or guarding, No splenomegaly, No surgical scars, No tender Musculoskeletal: nl extremities to inspection Extremities: normal pulses, No calf tenderness, No clubbing, No cyanosis, No edema, No other, No palpable cord, No pitting pedal edema, No tenderness Neurological: [employer] II-XII intact, nl mental status, nl speech, nl strength Skin: nl turgor Lymph: nl lymph nodes Results Result Diagram: 02/24/17 0635 02/24/17 0625 Results 24 hrs Laboratory Tests Test 02/23/17 17:22 02/23/17 21:29 02/24/17 06:25 02/24/17 06:35 Bedside Glucose 98 115 Sodium Level 132 L Potassium Level 3.4 L Chloride Level 94 L Carbon Dioxide Level 29 Anion Gap 12 Blood Urea Nitrogen 19 Creatinine 0.92 Glucose Level 129 Calcium Level 8.3 L Total Bilirubin 0.4 Direct Bilirubin 0.00 Indirect Bilirubin 0.4 Aspartate Amino Transf (AST/SGOT) 20 Alanine Aminotransferase (ALT/SGPT) 24 Alkaline Phosphatase 70 Total Protein 6.2 Albumin 2.9 L Globulin 3.30 H Albumin/Globulin Ratio 0.87 White Blood Count 8.8 Red Blood Count 5.00 Hemoglobin 14.3 Hematocrit 42.9 Mean Corpuscular Volume 85.8 Mean Corpuscular Hemoglobin 28.6 L Mean Corpuscular Hemoglobin Concent 33.3 Red Cell Distribution Width 14.6 H Platelet Count 266 Mean Platelet Volume 10.8 H Neutrophils % 64.9 Lymphocytes % 23.6 Monocytes % 8.3 Eosinophils % 2.4 Basophils % 0.6 Nucleated Red Blood Cells % 0.0 Neutrophils # 5.7 Lymphocytes # 2.1 Monocytes # 0.7 Eosinophils # 0.2 Basophils # 0.1 Nucleated Red Blood Cells # 0.0 Test 02/24/17 07:57 02/24/17 11:24 Bedside Glucose 130 202 Medications Medications Current Medications Benazepril HCl (Lotensin) 40 mg DAILY PO Last administered on 02/24/17 08:41; Admin Dose 40 MG; Start 02/21/17 at 09:00 Docusate Sodium (Colace) 100 mg BID PO Last administered on 02/24/17 08:39; Admin Dose 100 MG; Start 02/20/17 at 21:00 Glimepiride (Amaryl) 2 mg DAILY@08 PO Last administered on 02/24/17 08:40; Admin Dose 2 MG; Start 02/21/17 at 08:00 Hydrochlorothiazide (Hydrochlorothiazide) 12.5 mg BID PO Last administered on 08:41; Admin Dose 12.5 MG; Start 02/20/17 at 21:00 Paroxetine HCl (Paxil) 20 mg DAILY PO Last administered on 02/24/17 08:40; Admin Dose 20 MG; Start 02/21/17 at 09:00 Calcium Carbonate 1.25 gm 1.25 gm DAILY PO Last administered on 02/24/17 08:39 ; Admin Dose 1.25 GM; Start 02/20/17 at 16:00 Sodium Chloride (NS) 1,000 ml @ 70 mls/hr [id number] IV Last administered on 02/24 08:39; Admin Dose 70 MLS/HR; Start 02/20/17 at 15:23 Ondansetron HCl (Zofran Inj) 4 mg Q6H PRN IV NAUSEA AND/OR VOMITING; Start at 15:30 Acetaminophen (Tylenol Tab) 650 mg Q6H PRN PO PAIN LEVEL 1-3 OR FEVER Last administered on 02/23/17 12:13; Admin Dose 650 MG; Start 02/20/17 at 15:30 Acetaminophen (Tylenol Supp) 650 mg Q6H PRN [place] PAIN LEVEL 1-3 OR FEVER; Start 02/20/17 at 15:30 Acetaminophen/ Hydrocodone Bitart ([place] (5/325)) 1 tab Q6H PRN PO MODERATE PAIN LEVEL 4-6 Last administered on 02/21/17 23:15; Admin Dose 1 TAB; Start at 15:30 Acetaminophen/ Hydrocodone Bitart ([place] (5/325)) 2 tab Q6H PRN PO SEVERE PAIN LEVEL 7-10; Start 02/20/17 at 15:30 Morphine Sulfate (morphine) 1 mg Q4H PRN IV SEVERE PAIN LEVEL 7-10; Start 02/20 at 15:30 Docusate Sodium (Colace) 100 mg Q12H PRN PO CONSTIPATION; Start 02/20/17 at 15: 30 Magnesium Hydroxide (Milk Of Mag) 30 ml DAILY PRN PO CONSTIPATION; Start at 15:30 Bisacodyl (Dulcolax Supp) 10 mg DAILY PRN [place] CONSTIPATION; Start 02/20/17 at 15 :30 Heparin Sodium (Porcine) (Heparin (5000 Units/0.5 ml)) 5,000 unit Q12 SC Last administered on 02/24/17 08:42; Admin Dose 5,000 UNIT; Start 02/20/17 at 21:00 Diagnostic Test (Pha) (Accu-Chek) 1 ea 02 XX Last administered on 02/22/17 02: 09; Admin Dose 1 EA; Start 02/21/17 at 02:00 Miscellaneous Information 1 ea NOTE XX ; Start 02/20/17 at 16:00 Glucose (Glutose) 15 gm Q15M PRN PO DECREASED GLUCOSE; Start 02/20/17 at 16:00 Glucose (Glutose) 22.5 gm Q15M PRN PO DECREASED GLUCOSE; Start 02/20/17 at 16: 00 Dextrose (D50w Syringe) 25 ml Q15M PRN IV DECREASED GLUCOSE; Start 02/20/17 at 16:00 Dextrose (D50w Syringe) 50 ml Q15M PRN IV DECREASED GLUCOSE; Start 02/20/17 at 16:00 Glucagon (Glucagen) 1 mg Q15M PRN IM DECREASED GLUCOSE; Start 02/20/17 at 16:00 Glucose (Glutose) 15 gm Q15M PRN BUCCAL DECREASED GLUCOSE; Start 02/20/17 at 16 :00 Aspirin (Halfprin) 81 mg DAILY PO Last administered on 02/24/17 08:40; Admin Dose 81 MG; Start 02/20/17 at 19:30 Hydralazine HCl (Apresoline) 10 mg Q4H PRN IV ELEVATED BLOOD PRESSURE Last administered on 02/23/17 15:32; Admin Dose 10 MG; Start 02/20/17 at 23:30 Atorvastatin Calcium (Lipitor) 20 mg DAILY PO Last administered on 02/24/17 08 :39; Admin Dose 20 MG; Start 02/22/17 at 09:00 Pantoprazole (Protonix Tab) 40 mg DAILY@06 PO Last administered on 02/24/17 06 :08; Admin Dose 40 MG; Start 02/22/17 at 06:00 Carvedilol (Coreg) 3.125 mg BID PO Last administered on 02/24/17 08:41; Admin Dose 3.125 MG; Start 02/22/17 at 10:00 Nifedipine (Procardia Xl) 60 mg DAILY PO Last administered on 02/24/17 08:41; Admin Dose 60 MG; Start 02/23/17 at 17:30 LAMONTE MELGOZA MD Feb 24, 2017 15:48
[2017-02-24] MEDS: HYDROCODONE/APAP (5/325) TAB PO PRN (17:13)
[2017-02-25] MEDS: ACCU-CHEK XX SCH ×2 (00:36→21:07)
[2017-02-25 00:58] VITALS: BP 155/67; PULSE 84; RESP 18
[2017-02-25] MEDS: morphine 2 MG INJ IV PRN ×2 (01:56→20:11)
[2017-02-25] MEDS: PANTOPRAZOLE (EC) 40 MG TAB PO SCH (05:23)
[2017-02-25 05:53] LABS: POTASSIUM 4.4 mmol/L (3.5-5.1)
[2017-02-25 05:56] LABS: CREATININE 0.86 mg/dl (0.44-1.00)
[2017-02-25 05:57] LABS: CALCIUM 8.4 mg/dl (8.4-10.2)
[2017-02-25 07:26] VITALS: BP 224/98; RESP 20
[2017-02-25] MEDS: INSULIN ASPART [NOVOLOG] 3 ML PEN SC SCH ×4 (07:50→21:00)
[2017-02-25] MEDS: DOCUSATE SODIUM 100 MG CAP PO SCH ×2 (08:27→20:14)
[2017-02-25] MEDS: GLIMEPIRIDE 2 MG TAB PO SCH (08:27)
[2017-02-25] MEDS: PAROXETINE 20 MG TAB PO SCH (08:28)
[2017-02-25] MEDS: ATORVASTATIN 20 MG TAB PO SCH (08:29)
[2017-02-25] MEDS: BENAZEPRIL 40 MG TAB PO SCH (08:29)
[2017-02-25] MEDS: ASPIRIN (EC) 81 MG TAB PO SCH (08:29)
[2017-02-25] MEDS: CALCIUM CARBONATE 1.25 GM TAB PO SCH (08:29)
[2017-02-25] MEDS: NIFEdipine (XL) 60 MG TAB PO SCH (08:29)
[2017-02-25] MEDS: HYDROCHLOROTHIAZIDE 12.5 MG CAP PO SCH ×2 (08:29→20:16)
[2017-02-25] MEDS: HEPARIN 5,000 UNIT/0.5 ML VIAL SC SCH ×2 (08:34→20:26)
[2017-02-25 09:36] VITALS: BP 160/69; PULSE 84; RESP 16
[2017-02-25] MEDS: SOD CHLORIDE 0.9% 1,000 ML IV SCH ×2 (09:47→13:19)
--- NOTE | 2017-02-25 11:29 | PN ---
Date/Time of Note Date/Time of Note DATE: 02/25/17 TIME: 11:28 Assessment/Plan VTE Prophylaxis VTE Prophylaxis Intervention: heparin Lines/Catheters IV Catheter Type (from Nrs): Peripheral IV Assessment/Plan Chief Complaint/Hosp Course 1. Altered mental status, likely dementia related 2. Generalized body ache, mainly upper back pain, better, PT, decreased lipitor 3. Hypertension. continue antihypertensives 4. Diabetes. on amaryl 5. Dyslipidemia. on statin 6. History of osteoporosis. Will provide analgesics. 7. History of pulmonary embolism. No active patient noted at this time. We will place patient on prophylaxis for deep vein thromboses. 8. History of uterine cancer status post hysterectomy. No active issue noted at this time. Will monitor for now. 9. h/o CVA, no acute changes on CT sca10. Awaiting for SNF placement PPx- Heparin Problems: Subjective 24 Hr Interval Summary Constitutional: no complaints Exam/Review of Systems Vital Signs Vitals Vital Signs Date Time Temp Pulse Resp B/P Pulse Ox O2 Delivery O2 Flow Rate FiO2 02/25/17 09:36 84 16 160/69 99 Nasal Cannula 2.0 02/25/17 07:26 98.1 Intake and Output 02/24/17 02/24/17 02/25/17 15:00 23:00 07:00 Intake Total 720 ml 800 ml Output Total 1500 ml 1200 ml Balance -780 ml -400 ml Exam Constitutional: alert Respiratory: clear to auscultation Cardiovascular: regular rate and rhythm Gastrointestinal: soft, No distended Musculoskeletal: nl extremities to inspection Results Result Diagram: 02/24/17 0635 02/25/17 0418 Results 24 hrs Laboratory Tests Test 02/24/17 17:12 02/24/17 21:59 02/25/17 04:18 Bedside Glucose 130 148 Sodium Level 135 Potassium Level 4.4 Chloride Level 99 Carbon Dioxide Level 30 Anion Gap 10 Blood Urea Nitrogen 19 Creatinine 0.86 Glucose Level 115 Calcium Level 8.4 Medications Medications Current Medications Benazepril HCl (Lotensin) 40 mg DAILY PO Last administered on 02/25/17 08:29; Admin Dose 40 MG; Start 02/21/17 at 09:00 Docusate Sodium (Colace) 100 mg BID PO Last administered on 02/25/17 08:27; Admin Dose 100 MG; Start 02/20/17 at 21:00 Glimepiride (Amaryl) 2 mg DAILY@08 PO Last administered on 02/25/17 08:27; Admin Dose 2 MG; Start 02/21/17 at 08:00 Hydrochlorothiazide (Hydrochlorothiazide) 12.5 mg BID PO Last administered on 08:29; Admin Dose 12.5 MG; Start 02/20/17 at 21:00 Paroxetine HCl (Paxil) 20 mg DAILY PO Last administered on 02/25/17 08:28; Admin Dose 20 MG; Start 02/21/17 at 09:00 Calcium Carbonate 1.25 gm 1.25 gm DAILY PO Last administered on 02/25/17 08:29 ; Admin Dose 1.25 GM; Start 02/20/17 at 16:00 Sodium Chloride (NS) 1,000 ml @ 70 mls/hr [id number] IV Last administered on 02/24 22:11; Admin Dose 70 MLS/HR; Start 02/20/17 at 15:23 Ondansetron HCl (Zofran Inj) 4 mg Q6H PRN IV NAUSEA AND/OR VOMITING; Start at 15:30 Acetaminophen (Tylenol Tab) 650 mg Q6H PRN PO PAIN LEVEL 1-3 OR FEVER Last administered on 02/23/17 12:13; Admin Dose 650 MG; Start 02/20/17 at 15:30 Acetaminophen (Tylenol Supp) 650 mg Q6H PRN OR PAIN LEVEL 1-3 OR FEVER; Start 02/20/17 at 15:30 Acetaminophen/ Hydrocodone Bitart ([place] (5/325)) 1 tab Q6H PRN PO MODERATE PAIN LEVEL 4-6 Last administered on 02/24/17 17:13; Admin Dose 1 TAB; Start at 15:30 Acetaminophen/ Hydrocodone Bitart ([place] (5/325)) 2 tab Q6H PRN PO SEVERE PAIN LEVEL 7-10; Start 02/20/17 at 15:30 Morphine Sulfate (morphine) 1 mg Q4H PRN IV SEVERE PAIN LEVEL 7-10 Last administered on 02/25/17 01:56; Admin Dose 1 MG; Start 02/20/17 at 15:30 Docusate Sodium (Colace) 100 mg Q12H PRN PO CONSTIPATION; Start 02/20/17 at 15: 30 Magnesium Hydroxide (Milk Of Mag) 30 ml DAILY PRN PO CONSTIPATION; Start at 15:30 Bisacodyl (Dulcolax Supp) 10 mg DAILY PRN OR CONSTIPATION; Start 02/20/17 at 15 :30 Heparin Sodium (Porcine) (Heparin (5000 Units/0.5 ml)) 5,000 unit Q12 SC Last administered on 02/25/17 08:34; Admin Dose 5,000 UNIT; Start 02/20/17 at 21:00 Diagnostic Test (Pha) (Accu-Chek) 1 ea 02 XX Last administered on 02/22/17 02: 09; Admin Dose 1 EA; Start 02/21/17 at 02:00 Miscellaneous Information 1 ea NOTE XX ; Start 02/20/17 at 16:00 Glucose (Glutose) 15 gm Q15M PRN PO DECREASED GLUCOSE; Start 02/20/17 at 16:00 Glucose (Glutose) 22.5 gm Q15M PRN PO DECREASED GLUCOSE; Start 02/20/17 at 16: 00 Dextrose (D50w Syringe) 25 ml Q15M PRN IV DECREASED GLUCOSE; Start 02/20/17 at 16:00 Dextrose (D50w Syringe) 50 ml Q15M PRN IV DECREASED GLUCOSE; Start 02/20/17 at 16:00 Glucagon (Glucagen) 1 mg Q15M PRN IM DECREASED GLUCOSE; Start 02/20/17 at 16:00 Glucose (Glutose) 15 gm Q15M PRN BUCCAL DECREASED GLUCOSE; Start 02/20/17 at 16 :00 Aspirin (Halfprin) 81 mg DAILY PO Last administered on 02/25/17 08:29; Admin Dose 81 MG; Start 02/20/17 at 19:30 Hydralazine HCl (Apresoline) 10 mg Q4H PRN IV ELEVATED BLOOD PRESSURE Last administered on 02/23/17 15:32; Admin Dose 10 MG; Start 02/20/17 at 23:30 Atorvastatin Calcium (Lipitor) 20 mg DAILY PO Last administered on 02/25/17 08 :29; Admin Dose 20 MG; Start 02/22/17 at 09:00 Pantoprazole (Protonix Tab) 40 mg DAILY@06 PO Last administered on 02/25/17 05 :23; Admin Dose 40 MG; Start 02/22/17 at 06:00 Carvedilol (Coreg) 3.125 mg BID PO Last administered on 02/25/17 08:28; Admin Dose 3.125 MG; Start 02/22/17 at 10:00 Nifedipine (Procardia Xl) 60 mg DAILY PO Last administered on 02/25/17 08:29; Admin Dose 60 MG; Start 02/23/17 at 17:30 NIKKI CULP Feb 25, 2017 11:29
[2017-02-25 11:47] VITALS: BP 151/69; PULSE 77
[2017-02-25] MEDS: HYDROCODONE/APAP (5/325) TAB PO PRN ×2 (15:08→23:30)
[2017-02-25 19:45] VITALS: BP 182/80; RESP 20
[2017-02-25] MEDS: hydrALAzine 20 MG INJ IV PRN (23:58)
[2017-02-26] VITALS: BP 162/72; RESP 20
[2017-02-26] MEDS: SOD CHLORIDE 0.9% 1,000 ML IV SCH ×3 (03:01→17:03)
[2017-02-26] MEDS: PANTOPRAZOLE (EC) 40 MG TAB PO SCH (05:28)
[2017-02-26] MEDS: hydrALAzine 20 MG INJ IV PRN (05:37)
[2017-02-26 08:33] VITALS: BP 160/70; RESP 22
[2017-02-26] MEDS: CALCIUM CARBONATE 1.25 GM TAB PO SCH (08:52)
[2017-02-26] MEDS: ATORVASTATIN 20 MG TAB PO SCH (08:52)
[2017-02-26] MEDS: DOCUSATE SODIUM 100 MG CAP PO SCH ×2 (08:52→20:47)
[2017-02-26] MEDS: GLIMEPIRIDE 2 MG TAB PO SCH (08:53)
[2017-02-26] MEDS: NIFEdipine (XL) 60 MG TAB PO SCH (08:53)
[2017-02-26] MEDS: ASPIRIN (EC) 81 MG TAB PO SCH (08:53)
[2017-02-26] MEDS: PAROXETINE 20 MG TAB PO SCH (08:53)
[2017-02-26] MEDS: HYDROCHLOROTHIAZIDE 12.5 MG CAP PO SCH ×2 (08:54→20:50)
[2017-02-26] MEDS: BENAZEPRIL 40 MG TAB PO SCH (08:54)
[2017-02-26] MEDS: INSULIN ASPART [NOVOLOG] 3 ML PEN SC SCH ×4 (08:55→20:54)
[2017-02-26] MEDS: HEPARIN 5,000 UNIT/0.5 ML VIAL SC SCH ×2 (08:55→20:53)
[2017-02-26 11:30] VITALS: BP 144/71; PULSE 94
[2017-02-26] MEDS: morphine 2 MG INJ IV PRN (12:14)
--- NOTE | 2017-02-26 17:20 | PN ---
Date/Time of Note Date/Time of Note DATE: 02/26/17 TIME: 17:18 Assessment/Plan VTE Prophylaxis VTE Prophylaxis Intervention: heparin Lines/Catheters IV Catheter Type (from Nrs): Peripheral IV Assessment/Plan Chief Complaint/Hosp Course 1. Altered mental status, likely dementia related 2. Generalized body ache, mainly upper back pain, better, PT, decreased lipitor 3. Hypertension. continue antihypertensives 4. Diabetes. on amaryl 5. Dyslipidemia. on statin 6. History of osteoporosis. Will provide analgesics. 7. History of pulmonary embolism. No active patient noted at this time. We will place patient on prophylaxis for deep vein thromboses. 8. History of uterine cancer status post hysterectomy. No active issue noted at this time. Will monitor for now. 9. h/o CVA, no acute changes on CT sca10. Awaiting for SNF placement PPx- Heparin Problems: Subjective 24 Hr Interval Summary Constitutional: disoriented Exam/Review of Systems Vital Signs Vitals Vital Signs Date Time Temp Pulse Resp B/P Pulse Ox O2 Delivery O2 Flow Rate FiO2 02/26/17 11:30 94 144/71 02/26/17 08:33 97.8 22 99 02/26/17 08:00 Nasal Cannula 2.0 Intake and Output 02/25/17 02/25/17 02/26/17 15:00 23:00 07:00 Intake Total 1770 ml 2800 ml Output Total 1500 ml 3300 ml Balance 270 ml -500 ml Exam Constitutional: alert Psych: confusion Respiratory: clear to auscultation Cardiovascular: regular rate and rhythm Gastrointestinal: soft, No distended Musculoskeletal: nl extremities to inspection Results Result Diagram: 02/24/17 0635 02/25/17 0418 Results 24 hrs Laboratory Tests Test 02/25/17 17:22 02/25/17 20:22 02/26/17 08:10 02/26/17 12:06 Bedside Glucose 192 103 142 196 Medications Medications Current Medications Benazepril HCl (Lotensin) 40 mg DAILY PO Last administered on 02/26/17 08:54; Admin Dose 40 MG; Start 02/21/17 at 09:00 Docusate Sodium (Colace) 100 mg BID PO Last administered on 02/26/17 08:52; Admin Dose 100 MG; Start 02/20/17 at 21:00 Glimepiride (Amaryl) 2 mg DAILY@08 PO Last administered on 02/26/17 08:53; Admin Dose 2 MG; Start 02/21/17 at 08:00 Hydrochlorothiazide (Hydrochlorothiazide) 12.5 mg BID PO Last administered on 08:54; Admin Dose 12.5 MG; Start 02/20/17 at 21:00 Paroxetine HCl (Paxil) 20 mg DAILY PO Last administered on 02/26/17 08:53; Admin Dose 20 MG; Start 02/21/17 at 09:00 Calcium Carbonate 1.25 gm 1.25 gm DAILY PO Last administered on 02/26/17 08:52 ; Admin Dose 1.25 GM; Start 02/20/17 at 16:00 Sodium Chloride (NS) 1,000 ml @ 70 mls/hr [id number] IV Last administered on 02/26 17:03; Admin Dose 70 MLS/HR; Start 02/20/17 at 15:23 Ondansetron HCl (Zofran Inj) 4 mg Q6H PRN IV NAUSEA AND/OR VOMITING; Start at 15:30 Acetaminophen (Tylenol Tab) 650 mg Q6H PRN PO PAIN LEVEL 1-3 OR FEVER Last administered on 02/23/17 12:13; Admin Dose 650 MG; Start 02/20/17 at 15:30 Acetaminophen (Tylenol Supp) 650 mg Q6H PRN [place] PAIN LEVEL 1-3 OR FEVER; Start 02/20/17 at 15:30 Acetaminophen/ Hydrocodone Bitart ([place] (5/325)) 1 tab Q6H PRN PO MODERATE PAIN LEVEL 4-6 Last administered on 02/25/17 15:08; Admin Dose 1 TAB; Start at 15:30 Acetaminophen/ Hydrocodone Bitart ([place] (5/325)) 2 tab Q6H PRN PO SEVERE PAIN LEVEL 7-10 Last administered on 02/25/17 23:30; Admin Dose 2 TAB; Start at 15:30 Morphine Sulfate (morphine) 1 mg Q4H PRN IV SEVERE PAIN LEVEL 7-10 Last administered on 02/26/17 12:14; Admin Dose 1 MG; Start 02/20/17 at 15:30 Docusate Sodium (Colace) 100 mg Q12H PRN PO CONSTIPATION; Start 02/20/17 at 15: 30 Magnesium Hydroxide (Milk Of Mag) 30 ml DAILY PRN PO CONSTIPATION; Start at 15:30 Bisacodyl (Dulcolax Supp) 10 mg DAILY PRN [place] CONSTIPATION; Start 02/20/17 at 15 :30 Heparin Sodium (Porcine) (Heparin (5000 Units/0.5 ml)) 5,000 unit Q12 SC Last administered on 02/26/17 08:55; Admin Dose 5,000 UNIT; Start 02/20/17 at 21:00 Diagnostic Test (Pha) (Accu-Chek) 1 ea 02 XX Last administered on 02/22/17 02: 09; Admin Dose 1 EA; Start 02/21/17 at 02:00 Miscellaneous Information 1 ea NOTE XX ; Start 02/20/17 at 16:00 Glucose (Glutose) 15 gm Q15M PRN PO DECREASED GLUCOSE; Start 02/20/17 at 16:00 Glucose (Glutose) 22.5 gm Q15M PRN PO DECREASED GLUCOSE; Start 02/20/17 at 16: 00 Dextrose (D50w Syringe) 25 ml Q15M PRN IV DECREASED GLUCOSE; Start 02/20/17 at 16:00 Dextrose (D50w Syringe) 50 ml Q15M PRN IV DECREASED GLUCOSE; Start 02/20/17 at 16:00 Glucagon (Glucagen) 1 mg Q15M PRN IM DECREASED GLUCOSE; Start 02/20/17 at 16:00 Glucose (Glutose) 15 gm Q15M PRN BUCCAL DECREASED GLUCOSE; Start 02/20/17 at 16 :00 Aspirin (Halfprin) 81 mg DAILY PO Last administered on 02/26/17 08:53; Admin Dose 81 MG; Start 02/20/17 at 19:30 Hydralazine HCl (Apresoline) 10 mg Q4H PRN IV ELEVATED BLOOD PRESSURE Last administered on 02/26/17 05:37; Admin Dose 10 MG; Start 02/20/17 at 23:30 Atorvastatin Calcium (Lipitor) 20 mg DAILY PO Last administered on 02/26/17 08 :52; Admin Dose 20 MG; Start 02/22/17 at 09:00 Pantoprazole (Protonix Tab) 40 mg DAILY@06 PO Last administered on 4/23/17at 05 :28; Admin Dose 40 MG; Start 02/22/17 at 06:00 Carvedilol (Coreg) 3.125 mg BID PO Last administered on 02/26/17 08:54; Admin Dose 3.125 MG; Start 02/22/17 at 10:00 Nifedipine (Procardia Xl) 60 mg DAILY PO Last administered on 02/26/17 08:53; Admin Dose 60 MG; Start 02/23/17 at 17:30 NIKKI CULP Feb 26, 2017 17:20
[2017-02-26 19:38] VITALS: BP 184/72; RESP 18
[2017-02-26 22:10] VITALS: BP 164/71; RESP 17
[2017-02-27] MEDS: ACCU-CHEK XX SCH (02:00)
[2017-02-27] MEDS: PANTOPRAZOLE (EC) 40 MG TAB PO SCH (05:43)
[2017-02-27] MEDS: SOD CHLORIDE 0.9% 1,000 ML IV SCH ×2 (05:43→17:52)
[2017-02-27] MEDS: INSULIN ASPART [NOVOLOG] 3 ML PEN SC SCH ×4 (07:50→21:00)
[2017-02-27] MEDS: GLIMEPIRIDE 2 MG TAB PO SCH (08:39)
[2017-02-27] MEDS: DOCUSATE SODIUM 100 MG CAP PO SCH ×2 (08:39→20:29)
[2017-02-27] MEDS: ASPIRIN (EC) 81 MG TAB PO SCH (08:40)
[2017-02-27] MEDS: PAROXETINE 20 MG TAB PO SCH (08:40)
[2017-02-27] MEDS: BENAZEPRIL 40 MG TAB PO SCH (08:40)
[2017-02-27] MEDS: ATORVASTATIN 20 MG TAB PO SCH (08:40)
[2017-02-27] MEDS: CALCIUM CARBONATE 1.25 GM TAB PO SCH (08:40)
[2017-02-27] MEDS: NIFEdipine (XL) 60 MG TAB PO SCH ×2 (08:41→20:30)
[2017-02-27] MEDS: HYDROCHLOROTHIAZIDE 12.5 MG CAP PO SCH ×2 (08:41→20:29)
[2017-02-27] MEDS: HEPARIN 5,000 UNIT/0.5 ML VIAL SC SCH ×2 (08:42→20:44)
[2017-02-27 09:03] VITALS: BP 189/87; RESP 20
[2017-02-27 12:00] VITALS: BP 159/71; PULSE 82; RESP 18
--- NOTE | 2017-02-27 15:05 | PN ---
DATE: 02/27/2017 TIME OF EVALUATION: 1400. SUBJECTIVE DATA: Blood pressure slightly on the higher side. Vital signs are stable. The patient is awaiting placement. OBJECTIVE DATA: VITAL SIGNS: Temperature 98.3, pulse rate 92, respiratory rate 20, blood pressure 189/87, oxygen saturation 98% on low flow O2. GENERAL: This is an 81-year-old female patient lying in bed in no apparent distress. HEENT: Head normocephalic and atraumatic. Eyes: Anicteric sclerae. Conjunctivae clear. ENT: Nasal septum is midline. Oral mucosa is dry. NECK: Supple. No JVD noticed. RESPIRATORY: Bilaterally clear to auscultation. No adventitious breath sounds. No use of accessory muscles of respiration. CARDIAC: Regular rate and rhythm. S1 and S2 heard. ABDOMEN: Soft, nontender and nondistended. Bowel sounds positive in all 4 quadrants. GENITOURINARY: Deferred. EXTREMITIES: No cyanosis, no clubbing, no edema. Peripheral pulses are palpable. NEUROLOGIC: The patient is awake and alert. Oriented x1. LABORATORY AND DIAGNOSTIC DATA: None for today. ASSESSMENT AND PLAN: 1. Acute encephalopathy in a patient with underlying dementia. CT brain negative for intracranial findings. Continue current management. 2. History of stroke. Continue on aspirin. 3. Essential hypertension. Continue antihypertensives. The patient will also be started on p.r.n. antihypertensives for any systolic blood pressure readings greater than 160 mmHg. 4. Type 2 diabetes mellitus. Hemoglobin A1c 7.5. Continue the patient on sliding scale insulin. Blood sugars well controlled. 5. Dyslipidemia. Continue statins. 6. History of pulmonary embolism. Status post anticoagulation. Currently, off anticoagulation. 7. History of uterine cancer, status post hysterectomy. 8. Debility. Continue physical therapy. The patient needs placement. 9. Fluid, electrolytes and nutrition. Carbohydrate controlled mechanical soft diet. 10. Deep venous thrombosis prophylaxis. Subcutaneous Lovenox. 11. Gastrointestinal prophylaxis. Proton pump inhibitors. PLAN: Continue current management. Await placement. The case was discussed with Dr. Deluca. ELLIS DELUCA MD, AM/[facility] Conf#: [id number] DID#: [id number] [facility]
[2017-02-27] MEDS: morphine 2 MG INJ IV PRN ×2 (19:32→23:45)
[2017-02-27 19:49] VITALS: BP 181/80; RESP 18
[2017-02-27 21:34] VITALS: BP 164/79
[2017-02-28] MEDS: HYDROCODONE/APAP (5/325) TAB PO PRN ×3 (01:18→16:18)
[2017-02-28] MEDS: ACCU-CHEK XX SCH (01:23)
[2017-02-28 05:00] LABS: ADD SCAN DIFF NO; BASOPHIL # 0.1 10^3/ul (0.0-0.1); BASOPHILS % 0.4 % (0.0-2.0); EOSINOPHILS # 0.3 10^3/ul (0.0-0.5); EOSINOPHILS % 2.2 % (0.0-7.0); HEMATOCRIT 41.9 % (37.0-47.0); HEMOGLOBIN 13.5 g/dl (12.0-16.0); LYMPHOCYTES # 2.6 10^3/ul (0.8-2.9); LYMPHOCYTES % 22.7 % (15.0-51.0); MEAN CORPUSCULAR HEMOGLOBIN 27.8 pg (29.0-33.0); MEAN CORPUSCULAR HGB CONC 32.2 g/dl (32.0-37.0); MEAN CORPUSCULAR VOLUME 86.4 fl (82.0-101.0); MEAN PLATELET VOLUME 9.9 fl (7.4-10.4); MONOCYTE # 0.8 10^3/ul (0.3-0.9); MONOCYTES % 7.4 % (0.0-11.0); NEUTROPHIL # 7.6 10^3/ul (1.6-7.5); PLATELET COUNT 310 10^3/UL (140-415); RED BLOOD COUNT 4.85 10^6/ul (4.20-5.40); RED CELL DISTRIBUTION WIDTH 13.7 % (11.5-14.5); WHITE BLOOD COUNT 11.3 10^3/ul (4.8-10.8)
[2017-02-28 05:20] LABS: POTASSIUM 3.9 mmol/L (3.5-5.1)
[2017-02-28 05:21] LABS: MAGNESIUM 1.4 mg/dl (1.7-2.5); PHOSPHORUS 4.2 mg/dl (2.5-4.9)
[2017-02-28 05:23] LABS: CREATININE 0.77 mg/dl (0.44-1.00)
[2017-02-28 05:24] LABS: CALCIUM 8.4 mg/dl (8.4-10.2)
[2017-02-28] MEDS: PANTOPRAZOLE (EC) 40 MG TAB PO SCH (06:39)
[2017-02-28 07:29] VITALS: BP 168/75; RESP 18
[2017-02-28] MEDS: INSULIN ASPART [NOVOLOG] 3 ML PEN SC SCH ×4 (07:50→20:32)
[2017-02-28] MEDS: GLIMEPIRIDE 2 MG TAB PO SCH (08:00)
[2017-02-28] MEDS: SOD CHLORIDE 0.9% 1,000 ML IV SCH ×2 (08:35→23:18)
[2017-02-28] MEDS: ASPIRIN (EC) 81 MG TAB PO SCH (08:39)
[2017-02-28] MEDS: ATORVASTATIN 20 MG TAB PO SCH (08:39)
[2017-02-28] MEDS: CALCIUM CARBONATE 1.25 GM TAB PO SCH (08:39)
[2017-02-28] MEDS: DOCUSATE SODIUM 100 MG CAP PO SCH ×2 (08:39→20:29)
[2017-02-28] MEDS: BENAZEPRIL 40 MG TAB PO SCH (08:40)
[2017-02-28] MEDS: HYDROCHLOROTHIAZIDE 12.5 MG CAP PO SCH ×2 (08:41→20:29)
[2017-02-28] MEDS: NIFEdipine (XL) 60 MG TAB PO SCH ×2 (08:41→20:29)
[2017-02-28] MEDS: HEPARIN 5,000 UNIT/0.5 ML VIAL SC SCH ×2 (08:51→20:33)
[2017-02-28] MEDS: PAROXETINE 20 MG TAB PO SCH (08:53)
[2017-02-28 10:08] VITALS: BP 156/79; PULSE 85
--- NOTE | 2017-02-28 16:08 | PN ---
Date/Time of Note Date/Time of Note DATE: 02/28/17 TIME: 16:05 Assessment/Plan VTE Prophylaxis VTE Prophylaxis Intervention: heparin Lines/Catheters IV [facility]ter [facility] (from [facility]): Peripheral IV Urinary Cath still in place: Yes Assessment/Plan Chief Complaint/Hosp Course Assessment and plan 1. Acute encephalopathy with underlying dementia. CT scan of the brain was negative for any acute intracranial findings. Continue neuro check. 2. History of CVA. Patient to be resumed on her antiplatelet therapy 3. Essential hypertension. Continue on antihypertensives and adjust as needed 4. Diabetes. A1c at 7.5. Continue insulin regimen. Stable at present. 5. Dyslipidemia. Continue on statin 6. History of uterine cancer status post. Patient for outpatient follow-up for this 7. Debility and deconditioning. Tentative plan for intermediate facility placement. Awaiting bed placement DVT prophylaxis: Lovenox GERD prophylaxis: PPI Disposition and plan: Continue supportive care. Tentative plan for intermediate facility placement. Awaiting case management input Discussed plan of care with Dr. Deluca Problems: Subjective 24 Hr Interval Summary Free Text/Dictation Reports some chronic back pain. No other specific complaints Exam/Review of Systems Vital Signs Vitals Vital Signs Date Time Temp Pulse Resp B/P Pulse Ox O2 Delivery O2 Flow Rate FiO2 02/28/17 10:08 85 156/79 02/28/17 08:15 Nasal Cannula 2.0 02/28/17 07:29 98.3 18 99 Intake and Output 02/27/17 02/27/17 02/28/17 15:00 23:00 07:00 Intake Total 1680 ml 500 ml Output Total 2900 ml 2500 ml Balance -1220 ml -2000 ml Exam General: No acute signs or symptoms of distress Eyes: pupils equal round, Anicteric sclera Neck: Supple nontender, no JVD Cardiac: S1, S2 auscultated, regular rhythm and rate Pulmonary: No coarse rhonchi or breathing auscultated GI: Abdomen soft nontender nondistended, bowel sounds active Extremities: No edema bilateral lower extremities Skin: Clean dry and intact Neurologic: Alert to person place and time and situation Results Result Diagram: 02/28/17 0410 02/28/17 0410 Results 24 hrs Laboratory Tests Test 02/27/17 17:48 02/27/17 20:29 02/28/17 04:10 02/28/17 08:34 Bedside Glucose 169 154 122 White Blood Count 11.3 #H Red Blood Count 4.85 Hemoglobin 13.5 Hematocrit 41.9 Mean Corpuscular Volume 86.4 Mean Corpuscular Hemoglobin 27.8 L Mean Corpuscular Hemoglobin Concent 32.2 Red Cell Distribution Width 13.7 Platelet Count 310 Mean Platelet Volume 9.9 Neutrophils % 67.0 Lymphocytes % 22.7 Monocytes % 7.4 Eosinophils % 2.2 Basophils % 0.4 Nucleated Red Blood Cells % 0.0 Neutrophils # 7.6 H Lymphocytes # 2.6 Monocytes # 0.8 Eosinophils # 0.3 Basophils # 0.1 Nucleated Red Blood Cells # 0.0 Sodium Level 131 L Potassium Level 3.9 Chloride Level 92 L Carbon Dioxide Level 29 Anion Gap 14 Blood Urea Nitrogen 13 Creatinine 0.77 Glucose Level 132 Calcium Level 8.4 Phosphorus Level 4.2 Magnesium Level 1.4 L Test 02/28/17 12:03 Bedside Glucose 159 Medications Medications Current Medications Benazepril HCl (Lotensin) 40 mg DAILY PO Last administered on 02/28/17 08:40; Admin Dose 40 MG; Start 02/21/17 at 09:00 Docusate Sodium (Colace) 100 mg BID PO Last administered on 02/28/17 08:39; Admin Dose 100 MG; Start 02/20/17 at 21:00 Glimepiride (Amaryl) 2 mg DAILY@08 PO Last administered on 02/27/17 08:39; Admin Dose 2 MG; Start 02/21/17 at 08:00 Hydrochlorothiazide (Hydrochlorothiazide) 12.5 mg BID PO Last administered on 08:41; Admin Dose 12.5 MG; Start 02/20/17 at 21:00 Paroxetine HCl (Paxil) 20 mg DAILY PO Last administered on 02/28/17 08:53; Admin Dose 20 MG; Start 02/21/17 at 09:00 Calcium Carbonate 1.25 gm 1.25 gm DAILY PO Last administered on 02/28/17 08:39 ; Admin Dose 1.25 GM; Start 02/20/17 at 16:00 Sodium Chloride (NS) 1,000 ml @ 70 mls/hr [id number] IV Last administered on 02/28 08:35; Admin Dose 70 MLS/HR; Start 02/20/17 at 15:23 Ondansetron HCl (Zofran Inj) 4 mg Q6H PRN IV NAUSEA AND/OR VOMITING; Start at 15:30 Acetaminophen (Tylenol Tab) 650 mg Q6H PRN PO PAIN LEVEL 1-3 OR FEVER Last administered on 02/23/17 12:13; Admin Dose 650 MG; Start 02/20/17 at 15:30 Acetaminophen (Tylenol Supp) 650 mg Q6H PRN [place] PAIN LEVEL 1-3 OR FEVER; Start 02/20/17 at 15:30 Acetaminophen/ Hydrocodone Bitart ([place] (5/325)) 1 tab Q6H PRN PO MODERATE PAIN LEVEL 4-6 Last administered on 02/25/17 15:08; Admin Dose 1 TAB; Start at 15:30 Acetaminophen/ Hydrocodone Bitart ([place] (5/325)) 2 tab Q6H PRN PO SEVERE PAIN LEVEL 7-10 Last administered on 02/28/17 10:11; Admin Dose 2 TAB; Start at 15:30 Morphine Sulfate (morphine) 1 mg Q4H PRN IV SEVERE PAIN LEVEL 7-10 Last administered on 02/27/17 23:45; Admin Dose 1 MG; Start 02/20/17 at 15:30 Docusate Sodium (Colace) 100 mg Q12H PRN PO CONSTIPATION; Start 02/20/17 at 15: 30 Magnesium Hydroxide (Milk Of Mag) 30 ml DAILY PRN PO CONSTIPATION; Start at 15:30 Bisacodyl (Dulcolax Supp) 10 mg DAILY PRN [place] CONSTIPATION Last administered on 02/27/17 12:53; Admin Dose 10 MG; Start 02/20/17 at 15:30 Heparin Sodium (Porcine) (Heparin (5000 Units/0.5 ml)) 5,000 unit Q12 SC Last administered on 02/28/17 08:51; Admin Dose 5,000 UNIT; Start 02/20/17 at 21:00 Diagnostic Test (Pha) (Accu-Chek) 1 ea 02 XX Last administered on 02/22/17 02: 09; Admin Dose 1 EA; Start 02/21/17 at 02:00 Miscellaneous Information 1 ea NOTE XX ; Start 02/20/17 at 16:00 Glucose (Glutose) 15 gm Q15M PRN PO DECREASED GLUCOSE; Start 02/20/17 at 16:00 Glucose (Glutose) 22.5 gm Q15M PRN PO DECREASED GLUCOSE; Start 02/20/17 at 16: 00 Dextrose (D50w Syringe) 25 ml Q15M PRN IV DECREASED GLUCOSE; Start 02/20/17 at 16:00 Dextrose (D50w Syringe) 50 ml Q15M PRN IV DECREASED GLUCOSE; Start 02/20/17 at 16:00 Glucagon (Glucagen) 1 mg Q15M PRN IM DECREASED GLUCOSE; Start 02/20/17 at 16:00 Glucose (Glutose) 15 gm Q15M PRN BUCCAL DECREASED GLUCOSE; Start 02/20/17 at 16 :00 Aspirin (Halfprin) 81 mg DAILY PO Last administered on 02/28/17 08:39; Admin Dose 81 MG; Start 02/20/17 at 19:30 Hydralazine HCl (Apresoline) 10 mg Q4H PRN IV ELEVATED BLOOD PRESSURE Last administered on 02/26/17 05:37; Admin Dose 10 MG; Start 02/20/17 at 23:30 Atorvastatin Calcium (Lipitor) 20 mg DAILY PO Last administered on 02/28/17 08 :39; Admin Dose 20 MG; Start 02/22/17 at 09:00 Pantoprazole (Protonix Tab) 40 mg DAILY@06 PO Last administered on 02/28/17 06 :39; Admin Dose 40 MG; Start 02/22/17 at 06:00 Carvedilol (Coreg) 3.125 mg BID PO Last administered on 02/28/17 08:40; Admin Dose 3.125 MG; Start 02/22/17 at 10:00 Nifedipine 60 mg 60 mg BID PO Last administered on 02/28/17 08:41; Admin Dose 60 MG; Start 02/27/17 at 21:00 Magnesium Sulfate/ Sodium Chloride (Magnesium Sulfate/NS) 106 ml @ 35.333 mls/ hr ONCE ONCE IVPB ; Start 02/28/17 at 17:00; Stop 02/28/17 at 19:59 SCAR BOSE Feb 28, 2017 16:08
[2017-02-28] MEDS ORDERED: MAGNESIUM SULFATE 3 GM in SOD CHLORIDE 0.9% 100 ML IVPB ONE (17:00)
[2017-02-28 19:42] VITALS: BP 177/78; RESP 18
[2017-02-28 21:01] VITALS: BP 162/68
[2017-02-28 23:09] VITALS: BP 158/90; RESP 20
[2017-03-01] VITALS (8 sets, daily range): BP systolic 147–182; BP diastolic 55–79; PULSE 85–92; RESP 20
[2017-03-01] MEDS: ACCU-CHEK XX SCH (01:15)
[2017-03-01] MEDS: PANTOPRAZOLE (EC) 40 MG TAB PO SCH (05:15)
[2017-03-01] MEDS: PAROXETINE 20 MG TAB PO SCH (08:21)
[2017-03-01] MEDS: DOCUSATE SODIUM 100 MG CAP PO SCH ×2 (08:21→21:48)
[2017-03-01] MEDS: CALCIUM CARBONATE 1.25 GM TAB PO SCH (08:21)
[2017-03-01] MEDS: HYDROCHLOROTHIAZIDE 12.5 MG CAP PO SCH ×2 (08:21→21:49)
[2017-03-01] MEDS: NIFEdipine (XL) 60 MG TAB PO SCH ×2 (08:21→21:48)
[2017-03-01] MEDS: ATORVASTATIN 20 MG TAB PO SCH (08:21)
[2017-03-01] MEDS: ASPIRIN (EC) 81 MG TAB PO SCH (08:22)
[2017-03-01] MEDS: BENAZEPRIL 40 MG TAB PO SCH (08:22)
[2017-03-01] MEDS: HEPARIN 5,000 UNIT/0.5 ML VIAL SC SCH ×2 (08:27→21:51)
[2017-03-01] MEDS: HYDROCODONE/APAP (5/325) TAB PO PRN (08:29)
[2017-03-01] MEDS: INSULIN ASPART [NOVOLOG] 3 ML PEN SC SCH ×4 (08:40→21:00)
[2017-03-01] MEDS: SOD CHLORIDE 0.9% 1,000 ML IV SCH (13:15)
--- NOTE | 2017-03-01 14:51 | PN ---
Date/Time of Note Date/Time of Note DATE: 03/01/17 TIME: 14:50 Assessment/Plan VTE Prophylaxis VTE Prophylaxis Intervention: heparin Lines/Catheters IV [facility]from [facility]): Peripheral IV Urinary Cath still in place: Yes Assessment/Plan Chief Complaint/Hosp Course Assessment and plan 1. Acute encephalopathy with underlying dementia. CT scan of the brain was negative for any acute intracranial findings. Continue neuro check. 2. History of CVA. Patient to be resumed on her antiplatelet therapy 3. Essential hypertension. Continue on antihypertensives and adjust as needed 4. Diabetes. A1c at 7.5. Continue insulin regimen. Stable at present. 5. Dyslipidemia. Continue on statin 6. History of uterine cancer status post. Patient for outpatient follow-up for this 7. Debility and deconditioning. Tentative plan for longterm facility placement. Awaiting bed placement DVT prophylaxis: Lovenox GERD prophylaxis: PPI Disposition and plan: Continue supportive care. Tentative plan for longterm facility placement. Awaiting case management input Discussed plan of care with Dr. Deluca Problems: Subjective 24 Hr Interval Summary Free Text/Dictation Appears comfortable. No reports of neck pain at this time. Family at bedside Exam/Review of Systems Vital Signs Vitals Vital Signs Date Time Temp Pulse Resp B/P Pulse Ox O2 Delivery O2 Flow Rate FiO2 03/01/17 14:34 86 169/74 03/01/17 07:39 98.1 20 96 02/28/17 20:00 Nasal Cannula 2.0 Intake and Output 02/28/17 02/28/17 03/01/17 14:59 22:59 06:59 Intake Total 2001 ml 950 ml Output Total 1900 ml 3400 ml Balance 101 ml -2450 ml Exam General: No acute signs or symptoms of distress. Comfortable at present Eyes: pupils equal round, Anicteric sclera Neck: No JVD today Cardiac: Regular rate Pulmonary: No wheezing or rhonchi GI: Abdomen soft nontender nondistended Extremities: No edema bilateral lower extremities Skin: Clean dry and intact Neurologic: Alert to person place Results Result Diagram: 02/28/17 0410 02/28/17 0410 Results 24 hrs Laboratory Tests Test 02/28/17 17:37 02/28/17 20:31 03/01/17 08:20 03/01/17 12:23 Bedside Glucose 203 140 156 126 Medications Medications Current Medications Benazepril HCl (Lotensin) 40 mg DAILY PO Last administered on 03/01/17 08:22; Admin Dose 40 MG; Start 02/21/17 at 09:00 Docusate Sodium (Colace) 100 mg BID PO Last administered on 03/01/17 08:21; Admin Dose 100 MG; Start 02/20/17 at 21:00 Hydrochlorothiazide (Hydrochlorothiazide) 12.5 mg BID PO Last administered on 08:21; Admin Dose 12.5 MG; Start 02/20/17 at 21:00 Paroxetine HCl (Paxil) 20 mg DAILY PO Last administered on 03/01/17 08:21; Admin Dose 20 MG; Start 02/21/17 at 09:00 Calcium Carbonate 1.25 gm 1.25 gm DAILY PO Last administered on 03/01/17 08:21 ; Admin Dose 1.25 GM; Start 02/20/17 at 16:00 Sodium Chloride (NS) 1,000 ml @ 70 mls/hr [id number] IV Last administered on 03/01 13:15; Admin Dose 70 MLS/HR; Start 02/20/17 at 15:23 Ondansetron HCl (Zofran Inj) 4 mg Q6H PRN IV NAUSEA AND/OR VOMITING; Start at 15:30 Acetaminophen (Tylenol Tab) 650 mg Q6H PRN PO PAIN LEVEL 1-3 OR FEVER Last administered on 02/23/17 12:13; Admin Dose 650 MG; Start 02/20/17 at 15:30 Acetaminophen (Tylenol Supp) 650 mg Q6H PRN [place] PAIN LEVEL 1-3 OR FEVER; Start 02/20/17 at 15:30 Acetaminophen/ Hydrocodone Bitart ([place] (5/325)) 1 tab Q6H PRN PO MODERATE PAIN LEVEL 4-6 Last administered on 02/25/17 15:08; Admin Dose 1 TAB; Start at 15:30 Acetaminophen/ Hydrocodone Bitart ([place] (5/325)) 2 tab Q6H PRN PO SEVERE PAIN LEVEL 7-10 Last administered on 03/01/17 08:29; Admin Dose 2 TAB; Start at 15:30 Morphine Sulfate (morphine) 1 mg Q4H PRN IV SEVERE PAIN LEVEL 7-10 Last administered on 02/27/17 23:45; Admin Dose 1 MG; Start 02/20/17 at 15:30 Docusate Sodium (Colace) 100 mg Q12H PRN PO CONSTIPATION; Start 02/20/17 at 15: 30 Magnesium Hydroxide (Milk Of Mag) 30 ml DAILY PRN PO CONSTIPATION; Start at 15:30 Bisacodyl (Dulcolax Supp) 10 mg DAILY PRN [place] CONSTIPATION Last administered on 02/27/17 12:53; Admin Dose 10 MG; Start 02/20/17 at 15:30 Heparin Sodium (Porcine) (Heparin (5000 Units/0.5 ml)) 5,000 unit Q12 SC Last administered on 03/01/17 08:27; Admin Dose 5,000 UNIT; Start 02/20/17 at 21:00 Diagnostic Test (Pha) (Accu-Chek) 1 ea 02 XX Last administered on 02/22/17 02: 09; Admin Dose 1 EA; Start 02/21/17 at 02:00 Miscellaneous Information 1 ea NOTE XX ; Start 02/20/17 at 16:00 Glucose (Glutose) 15 gm Q15M PRN PO DECREASED GLUCOSE; Start 02/20/17 at 16:00 Glucose (Glutose) 22.5 gm Q15M PRN PO DECREASED GLUCOSE; Start 02/20/17 at 16: 00 Dextrose (D50w Syringe) 25 ml Q15M PRN IV DECREASED GLUCOSE; Start 02/20/17 at 16:00 Dextrose (D50w Syringe) 50 ml Q15M PRN IV DECREASED GLUCOSE; Start 02/20/17 at 16:00 Glucagon (Glucagen) 1 mg Q15M PRN IM DECREASED GLUCOSE; Start 02/20/17 at 16:00 Glucose (Glutose) 15 gm Q15M PRN BUCCAL DECREASED GLUCOSE; Start 02/20/17 at 16 :00 Aspirin (Halfprin) 81 mg DAILY PO Last administered on 03/01/17 08:22; Admin Dose 81 MG; Start 02/20/17 at 19:30 Hydralazine HCl (Apresoline) 10 mg Q4H PRN IV ELEVATED BLOOD PRESSURE Last administered on 02/26/17 05:37; Admin Dose 10 MG; Start 02/20/17 at 23:30 Atorvastatin Calcium (Lipitor) 20 mg DAILY PO Last administered on 03/01/17 08 :21; Admin Dose 20 MG; Start 02/22/17 at 09:00 Pantoprazole (Protonix Tab) 40 mg DAILY@06 PO Last administered on 03/01/17 05 :15; Admin Dose 40 MG; Start 02/22/17 at 06:00 Carvedilol (Coreg) 3.125 mg BID PO Last administered on 03/01/17 08:42; Admin Dose 3.125 MG; Start 02/22/17 at 10:00 Nifedipine (Procardia Xl) 60 mg BID PO Last administered on 03/01/17 08:21; Admin Dose 60 MG; Start 02/27/17 at 21:00 Hydralazine HCl (Apresoline) 25 mg Q8 PO Last administered on 03/01/17 14:33; Admin Dose 25 MG; Start 03/01/17 at 14:00 SCAR BOSE Mar 01, 2017 14:51
[2017-03-01] MEDS: hydrALAzine 20 MG INJ IV PRN (16:46)
[2017-03-02] MEDS: ACCU-CHEK XX SCH (01:55)
[2017-03-02] MEDS: SOD CHLORIDE 0.9% 1,000 ML IV SCH ×2 (04:24→18:29)
[2017-03-02] MEDS: PANTOPRAZOLE (EC) 40 MG TAB PO SCH (04:24)
[2017-03-02] MEDS: HYDROCODONE/APAP (5/325) TAB PO PRN (04:25)
[2017-03-02 07:49] VITALS: BP 134/64; RESP 18
[2017-03-02] MEDS ORDERED: GLIMEPIRIDE 2 MG TAB PO SCH (07:50)
[2017-03-02] MEDS: INSULIN ASPART [NOVOLOG] 3 ML PEN SC SCH ×3 (07:50→18:21)
[2017-03-02] MEDS: DOCUSATE SODIUM 100 MG CAP PO SCH (09:11)
[2017-03-02] MEDS: NIFEdipine (XL) 60 MG TAB PO SCH (09:12)
[2017-03-02] MEDS: HYDROCHLOROTHIAZIDE 12.5 MG CAP PO SCH (09:12)
[2017-03-02] MEDS: ATORVASTATIN 20 MG TAB PO SCH (09:12)
[2017-03-02] MEDS: ASPIRIN (EC) 81 MG TAB PO SCH (09:12)
[2017-03-02] MEDS: PAROXETINE 20 MG TAB PO SCH (09:12)
[2017-03-02] MEDS: CALCIUM CARBONATE 1.25 GM TAB PO SCH (09:13)
[2017-03-02] MEDS: BENAZEPRIL 40 MG TAB PO SCH (09:13)
[2017-03-02] MEDS: HEPARIN 5,000 UNIT/0.5 ML VIAL SC SCH (09:16)
--- NOTE | 2017-03-02 10:51 | PDOCDIS ---
Discharge Instructions DIAGNOSIS Discharge Diagnosis: 1. Acute encephalopathy with underlying dementia 2. debilty/deconditioned CONDITION Patient Condition: Stable HOME CARE INSTRUCTIONS: Special Diet: MECHANICAL SOFT OTHER ORDERS: Other Orders: Further care and management per care home facility SCAR BOSE Mar 02, 2017 10:51
[2017-03-02] MEDS ORDERED: CLON-379 PO (10:53)
[2017-03-02] MEDS ORDERED: NOVO3I SC (10:59)
[2017-03-02] MEDS: ACETAMINOPHEN 325 MG TAB PO PRN (13:26)
== END 2017-03-02 18:30 | DRG 72 ==
LOC: MS4 13:04 → MS1 02-25 00:53
PROVIDERS: ADMIT Internal Medicine Pulmonary Disease; ATTEND Internal Medicine Pulmonary Disease
DX: G93.40 Encephalopathy, unspecified (principal); F03.90 Unspecified dementia, unspecified severity, without behavioral disturbance, psychotic disturbance, mood disturbance, and anxiety; E11.9 Type 2 diabetes mellitus without complications; I10 Essential (primary) hypertension; M54.2 Cervicalgia; R07.9 Chest pain, unspecified; Z86.73 Personal history of transient ischemic attack (TIA), and cerebral infarction without residual deficits; Z86.711 Personal history of pulmonary embolism; M81.0 Age-related osteoporosis without current pathological fracture; Z85.42 Personal history of malignant neoplasm of other parts of uterus; E78.5 Hyperlipidemia, unspecified; Z79.01 Long term (current) use of anticoagulants; Z87.891 Personal history of nicotine dependence; I44.0 Atrioventricular block, first degree
CPT/HCPCS: 70450; 71010; 72125; 80048; 80053; 80061; 81001; 81003; 82550; 82553; 82962; 83036; 83605; 83690; 83735; 84100; 84436; 84443; 84479; 84484; 85025; 87040; 87086; 93005; 93306; 97110; 97116; 97162; 97530; C9113; J0360; J1644; J1815; J2270; J3475; J7030